=== PATIENT | male | born 1930 | race Hispanic/Latino ===

== ENCOUNTER 2017-04-28 11:41 | Inpatient (IN) | payer MEDICARE, MEDICAID ==
[2017-04-28 11:58] VITALS: BMI 29.7
--- NOTE | 2017-04-28 12:12 | ED PDOC ---
Arrival/HPI - General Chief Complaint: Anxiety Time Seen by Provider: 04/28/17 11:45 Historian: Patient, EMS - History of Present Illness Narrative History of Present Illness (Text): The patient is a 87yo male, brought to the emergency department by EMS for evaluation of anxiety. Patient reports he lives alone and was in his apartment and became anxious. He denies any chest pain or shortness of breath and states he just felt anxious. Per EMS, pt's neighbor who called the EMS saw the patient complain of chest pain at that time. Of note, patient had a history of alzheimers dementia and is a questionable historian. Time/Duration: Prior to Arrival Symptom Onset: Gradual Past Medical History - Provider Review Nursing Documentation Reviewed: Yes - Cardiac Hx Cardiac Disorders: Yes - Pulmonary Hx Respiratory Disorders: No - Neurological Hx Neurological Disorder: Yes Hx Alzheimer's Disease: Yes - HEENT Hx HEENT Disorder: No - Renal Hx Renal Disorder: No - Endocrine/Metabolic Hx Endocrine Disorders: No - Hematological/Oncological Hx Blood Disorders: No - Integumentary Hx Dermatological Disorder: No - Musculoskeletal/Rheumatological Hx Musculoskeletal Disorders: Yes Hx Falls: Yes - Gastrointestinal Hx Gastrointestinal Disorders: Yes (ACUTE CHOLECYSTITIS,GERD,SPHICTERECTOMY AND STONE EXTRACTION FOR CBD) - Genitourinary/Gynecological Hx Genitourinary Disorders: Yes Hx Reproductive Disorders: Yes (PROSTATE CA) - Psychiatric Hx Psychophysiologic Disorder: No Hx Anxiety: No Hx Emotional Abuse: No Hx Physical Abuse: No Hx Substance Use: No - Past Surgical History Past Surgical History: Non-Contributing - Anesthesia Hx Anesthesia Reactions: No Hx Malignant Hyperthermia: No - Suicidal Assessment Feels Threatened In Home Enviroment: No Family/Social History - Physician Review Nursing Documentation Reviewed: Yes Family/Social History: Unknown Family HX Smoking Status: Former Smoker Hx Alcohol Use: No Hx Substance Use: No Hx Substance Use Treatment: No Allergies/Home Meds Allergies/Adverse Reactions: Allergies Penicillins Allergy (Verified 04/28/17 17:02) ANAPHYLAXIS unknown Home Medications: Home Meds Medication Instructions Recorded Confirmed Donepezil HCl [Aricept ODT] 10 mg PO DAILY 09/20/16 04/28/17 Doxazosin [Cardura] 4 mg PO DAILY 09/20/16 04/28/17 Furosemide [Lasix] 40 mg PO DAILY 09/20/16 04/28/17 Memantine [Namenda] 28 mg PO HS 09/20/16 04/28/17 Simvastatin 10 mg PO DAILY 09/20/16 04/28/17 Physical Exam - Physical Exam Narrative Physical Exam (Text): - Review of Systems All systems reviewed and negative as marked. Constitutional: Normal. absent: Fatigue, Weight Change, Fevers Eyes: Normal ENT: Normal Respiratory: Normal absent: SOB, Cough, Sputum Cardiovascular: Normal absent: Chest pain, Palpitations, Syncope Gastrointestinal: Normal absent: Abdominal pain, Diarrhea, Nausea, Vomiting Genitourinary: Normal. absent: Dysuria, Frequency, Hematuria Musculoskeletal: Normal. absent: Arthralgias, Back Pain, Neck Pain Skin: Normal Neurological: Normal absent: Focal Weakness Endocrine: Normal Hemo/Lymphatic: Normal Psychiatric: Anxiety - Physical exam Patient appears age appropriate, speaking full sentences without difficulty - Systems Exam Head: Present: Atraumatic, Normocephalic Pupils: Present: PERRL Extraocular Muscles: Present: EOMI Conjunctiva: Present: Normal Mouth: Present: Moist Mucous Membranes Neck: Present: Normal Range of Motion. No: MIDLINE TENDERNESS, Paraspinal Tenderness Respiratory/Chest: Present: Clear to Auscultation, Good Air Exchange. No: Respiratory Distress, Accessory Muscle Use, Tachypnic Cardiovascular: Present: Irregularly irregular No: Murmurs Abdomen: Present: Normal Bowel Sounds, No: Tenderness, Peritoneal Signs, Rebound, Guarding, Distention Back: Present: Normal Inspection. No: Midline Tenderness, Paraspinal Tenderness Upper Extremity: Present: Normal Inspection. No: Cyanosis, Edema Lower Extremity: Present: Normal Inspection. No: Edema Neurological: Present: GCS=15, Speech Normal, cranial nerves II through XII fully intact with no cerebellar abnormality, neuro-sensory fully intact. No focal neurological deficits. Skin: Present: Warm, Dry, Normal Color. No: Rashes Lymphatic: Present: OX3, NI, NC Psychiatric: Present: Alert, not anxious 04/28/17 14:14 Vital Signs Temp Pulse Resp BP Pulse Ox 04/28/17 15:24 59 L 16 130/88 97 04/28/17 13:55 55 L 16 139/84 99 04/28/17 11:42 97.8 F 77 18 145/72 97 Medical Decision Making ED Course and Treatment: Impression: Anxiety Differential Diagnosis included but are not limited to: Anxiety vs. ACS Plan: -- Called pt's daughter Cari who confirms the pt's history of dementia and states pt has history of heart disease. She is aware of plan to observe pt overnight for chest pain. -- EKG -- Reassess and disposition Prior Visits: had a stress test performed by Dr. Dick Progress Notes: 04/28/17 13:26 pt resting comfortably in bed, denies complaints. states he has no cp/sob at this time. does not appear anxious 04/28/17 13:[address] Lopez, asked to admit to tele and order q8 card iso pt aware of and agrees with plan - Lab Interpretations Lab Results: 04/28/17 12:15 04/28/17 12:15 Lab Results 04/28/17 12:15: Sodium 142, Potassium 3.7, Chloride 104, Carbon Dioxide 26, Anion Gap 16, BUN 33 H, Creatinine 1.2, Est GFR ( Amer) > 60, Est GFR ( Non-Af Amer) 58, Random Glucose 102, Calcium 9.9, Total Bilirubin 1.3, AST 32, ALT 22, Alkaline Phosphatase 93, Lactate Dehydrogenase 545, Total Creatine Kinase 72, Troponin I < 0.01, Total Protein 8.1, Albumin 4.3, Globulin 3.9, Albumin/Globulin Ratio 1.1 04/28/17 12:15: PT 12.8 H, INR 1.19 H, APTT 28.5 04/28/17 12:15: WBC 4.2 L D, RBC 4.63, Hgb 13.9 L, Hct 40.6 L, MCV 87.7, MCH 30.0, MCHC 34.2, RDW 14.1, Plt Count 180, MPV 9.5, Gran % 68.8 H, Lymph % (Auto ) 19.8 L, [place] % (Auto) 5.8, Eos % (Auto) 4.6, Baso % (Auto) 1.0, Gran # 2.86, Lymph # 0.8 L, [place] # 0.2, Eos # 0.2, Baso # 0.04 - RAD Interpretation Radiology Orders: 04/28/17 12:03 CHEST PORTABLE [RAD] Stat - EKG Interpretation EKG Interpretation (Text): 52 beats per minute. Irregularly irregular. No ST elevation. Atrial fibrillation. Interpreted by ED Physician: Yes - Medication Orders Current Medication Orders: Acetaminophen (Tylenol 325mg Tab) 650 mg PO Q6H PRN PRN Reason: Fever >100.4 F Last Admin: 04/28/17 21:34 Dose: 650 mg Re-Assess: MAR Pain/Vitals Document 04/28/17 22:34 SWE (Rec: 04/29/17 01:44 SWE [id number]) Pain Reassessment Is This A Pain ReAssessment? No Sleep Is patient sleeping during reassessment? Yes Alprazolam (Xanax) 0.25 mg PO Q8H PRN PRN Reason: Anxiety Stop: 05/05/17 13:57 Last Admin: 04/30/17 20:39 Dose: 0.25 mg Amlodipine Besylate (Norvasc) 5 mg PO DAILY [facility]IO Last Admin: 04/30/17 09:25 Dose: 5 mg Atorvastatin Calcium (Lipitor) 10 mg PO DIN [facility] Last Admin: 04/30/17 17:12 Dose: 10 mg Donepezil HCl (Aricept) 10 mg PO HS [facility] Last Admin: 04/30/17 21:13 Dose: 10 mg Doxazosin Mesylate (Cardura) 4 mg PO HS [facility] Last Admin: 04/30/17 21:13 Dose: 4 mg Furosemide (Lasix) 40 mg PO DAILY [facility] Last Admin: 04/30/17 09:42 Dose: 40 mg Memantine (Namenda) 10 mg PO DAILY [facility] Last Admin: 04/30/17 09:42 Dose: 10 mg Nitroglycerin (Nitro-Bid 2% Oint) 1 ea TOP Q4H PRN PRN Reason: accelerated hypertension Ondansetron HCl (Zofran Inj) 4 mg IVP Q6H PRN PRN Reason: Nausea/Vomiting Paroxetine HCl (Paxil) 10 mg PO DAILY [facility] Last Admin: 04/30/17 09:25 Dose: 10 mg Potassium Chloride (Klor-Con 10) 20 meq PO BRK [facility] Last Admin: 04/30/17 08:32 Dose: 20 meq Risperidone (Risperdal Tab) 0.25 mg PO BID PRN; Protocol PRN Reason: Agitation Last Admin: 04/30/17 14:58 Dose: 0.25 mg Re-Assess: Reassess Psych Meds Document 04/30/17 15:58 RS (Rec: 04/30/17 18:49 [id number]) Reassess Psych Med Effective Warfarin Sodium (Coumadin) 6 mg PO 1800 VALERIO PRN Reason: Protocol Last Admin: 04/30/17 17:11 Dose: 6 mg Discontinued Medications Aspirin (Aspirin Chewable) 324 mg PO STAT STA Stop: 04/28/17 12:03 Last Admin: 04/28/17 12:12 Dose: 324 mg Metoprolol Tartrate (Lopressor) 25 mg PO BRKDIN [facility] Last Admin: 04/28/17 18:17 Dose: 25 mg Pneumococcal Polyvalent Vaccine (Pneumovax 23 Vaccine) 0.5 ml IM .ONCE ONE Stop: 04/28/17 17:19 Potassium Chloride (K-Dur 20 Meq Er Tab) 20 meq PO ONCE ONE Stop: 04/29/17 09:14 Last Admin: 04/29/17 09:25 Dose: 20 meq Warfarin Sodium (Coumadin) 5 mg PO 1800 VALERIO PRN Reason: Protocol Last Admin: 04/28/17 18:14 Dose: 5 mg - Scribe Statement The provider has reviewed the documentation as recorded by the Georges Betancourt Provider Scribe Attestation: All medical record entries made by the Georges were at my direction and personally dictated by me. I have reviewed the chart and agree that the record accurately reflects my personal performance of the history, physical exam, medical decision making, and the department course for this patient. I have also personally directed, reviewed, and agree with the discharge instructions and disposition. Disposition/Present on Arrival - Present on Arrival Any Indicators Present on Arrival: No History of DVT/PE: No History of Uncontrolled Diabetes: No Urinary Catheter: No History of Decub. Ulcer: No History Surgical Site Infection Following: None - Disposition Have Diagnosis and Disposition been Completed?: Yes Diagnosis: Chest pain Disposition: HOSPITALIZED Disposition Time: 13:34 Patient Plan: Admission Patient Problems: Current Active Problems Problem Status Onset Chest pain Acute Condition: STABLE
[2017-04-28 12:37] LABS: BASO # 0.04 K/mm3 (0.0-2.0); EOS # 0.2 (0.0-0.7); EOS % 4.6 % (1.5-5.0); GRAN # 2.86 (1.4-6.5); GRAN % 68.8 % (50.0-68.0); HEMOGLOBIN 13.9 gm/dL (14.0-18.0); LYMPH # 0.8 (1.2-3.4); LYMPH % 19.8 % (22.0-35.0); MEAN CELL VOLUME 87.7 fL (80.0-105.0); MEAN CORPUSCULAR HGB CONC 34.2 g/dl (31.0-37.0); MEAN PLATELET VOLUME 9.5 fl (7.0-11.0); MONO # 0.2 (0.1-0.6); MONO % 5.8 % (1.0-6.0); PLATELET COUNT 180 10^3/uL (120.0-450.0); RBC 4.63 10^6/uL (3.5-6.1); RED CELL DISTRIBUTION WIDTH 14.1 % (11.5-14.5)
[2017-04-28 12:39] LABS: WHITE BLOOD COUNT 4.2 10^3/ul (4.5-11.0)
[2017-04-28 12:46] LABS: ALB/GLOB RATIO 1.1 (1.1-1.8); ALBUMIN 4.3 g/dL (3.0-4.8); ALT/SGPT 22 U/L (7-56); AST/SGOT 32 U/L (15-59); BLOOD UREA NITROGEN 33 mg/dL (7-21); CALCIUM 9.9 mg/dL (8.4-10.5); GFR AFRICAN-AMERICAN > 60; GFR NON-AFRICAN AMERICAN 58
[2017-04-28 12:50] LABS: INR 1.19 (0.93-1.08); PARTIAL THROMBOPLASTIN TIME 28.5 Seconds (23.7-30.8); PROTHROMBIN TIME 12.8 Seconds (9.9-11.8)
[2017-04-28 13:10] LABS: TROPONIN I < 0.01 ng/mL
--- NOTE | 2017-04-28 13:17 | RAD ---
HISTORY: cough COMPARISON: 05/26/2016 FINDINGS: LUNGS: No active pulmonary disease. PLEURA: No significant pleural effusion identified, no pneumothorax apparent. CARDIOVASCULAR: Mild aortic tortuosity. The heart is normal in size OSSEOUS STRUCTURES: No significant abnormalities. VISUALIZED UPPER ABDOMEN: Normal. OTHER FINDINGS: None. IMPRESSION: No active disease.
[2017-04-28] MEDS ORDERED: Nitroglycerin 2% Ointment Foilpak UD TOP PRN (14:41)
[2017-04-28] MEDS ORDERED: Pneumococcal 23-Valent Vaccine IM ONE (17:18)
[2017-04-28 19:11] LABS: TROPONIN I < 0.01 ng/mL
--- NOTE | 2017-04-28 20:35 | CARD ---
APPROVED REPORT EKG Measurement Heart [id number] <Conclusion> Atrial fibrillation with slow ventricular response with a competing junctional pacemaker with premature ventricular or aberra Left axis deviation Moderate voltage criteria for LVH, may be normal variant ST & T wave abnormality, consider lateral ischemia or digitalis effect Abnormal ECG
--- NOTE | 2017-04-29 00:01 | HP ---
HISTORY OF PRESENT ILLNESS: This 87-year-old male is admitted to the [facility] for acute coronary syndrome, rule out myocardial infarction and his case was reviewed in detail in the emergency room with physician, Dr. Grady Melendez. The patient presented via ambulance when a neighbor found him in his apartment highly agitated and anxious, and although, the patient denied any chest pain, the neighbor stated that when he found the patient in his apartment prior to calling the ambulance, he seemed unsteady and seemed to be complaining of chest discomfort. At present, the patient is alert, denying any chest pain, shortness of breath, nausea, vomiting, diaphoresis, arm pain, jaw pain or substernal tightness. PAST MEDICAL HISTORY: Extensive and includes, severe pulmonary hypertension, which renders him an extremely high risk candidate for any interventional surgery or anesthesia. Also with history of advanced Alzheimer's dementia, chronic hypertension, chronic atrial fibrillation, history of hyperlipidemia, anxiety neurosis, depression, degenerative arthritis. The patient was last hospitalized in 06/2016 for acute cholecystitis that required the patient to be transferred to the [facility] for sphincterotomy and extraction of a gallstone from his common bile duct. Postprocedure, the patient was in a transitional care rehab where his Coumadin was resumed and the patient was discharged to his primary care physician, Dr. Santiago for his followup care. REVIEW OF SYSTEMS: On head review, no headache or seizure. On eye review, no change in visual acuity. On ear review, no hearing loss. On throat review, no swallowing difficulty. On neck review, no stiffness. On cardiac review; he has a history of chronic hypertension, stable atherosclerotic heart disease, chronic atrial fibrillation and now with a subtherapeutic PT/INR. Pulmonary: Has a history of severe pulmonary hypertension. GI: Status post cholecystitis, sphincterotomy and common bile duct stone extraction at [facility]. : No dysuria. Skin without rash. Neurological: Deconditioning. Vascular: No claudication. Psychological: Chronic anxiety, chronic Alzheimer's dementia. He is a current nondrinker, nonsmoker. He is retired. ALLERGIES: HE IS ALLERGIC TO PENICILLIN. OUTPATIENT MEDICATIONS: Included: 1. Coumadin. 2. Zocor. 3. Paxil. 4. Metoprolol. 5. Namenda. 6. Lasix. 7. Pepcid. 8. Cardura. 9. Aricept. 10. Tylenol p.r.n. FAMILY HISTORY: Noncontributory. SOCIAL HISTORY: He is currently a nonactive smoker, drinker or IV drug misuser. PHYSICAL EXAMINATION GENERAL: At present, he is in atrial fibrillation on a electronic commerce specialist in the emergency room. Denying any chest pain, shortness of breath. VITAL SIGNS: Temperature 97.8, respirations 18, pulse 77 and blood pressure 145/72 with a pulse ox of 99% on room air. HEENT: Head is normocephalic and atraumatic. Eyes, no icterus. Ears, clear. Throat, noninjected. NECK: Supple. HEART: Irregular, S1, S2. No pathological rubs, murmurs, or gallops. LUNGS: Clear to auscultation. ABDOMEN: Soft and nontender, no palpable organomegaly. No rebound. No guarding. No tenderness. EXTREMITIES: No clubbing, no cyanosis, no edema. SKIN: Without rash. No ulcerations. VASCULAR: Legs are warm to touch. PSYCHOLOGICAL: Alert, confused, does not know the name of his home medication. NEURO: Moves all 4 extremities and sensory exam intact. LABORATORY DATA: His white count 4200, hemoglobin 13.9, hematocrit 40.6, and platelets 180,000. PT/INR 1.19. PTT 28.5. Sodium 142, K 3.7, chloride 104, bicarb 26, BUN 33 and creatinine 1.2. Random blood sugar was 102. Bilirubin normal at 1.3, AST 32, ALT 22 and alkaline phosphatase 93. CPK normal at 72, troponin less than 0.01. EKG showed atrial fibrillation with nonspecific ST-T wave changes. Chest x-ray was reviewed by Dr. Segundo, which showed no evidence of pulmonary disease and no active pulmonary disease. IMPRESSION: This is an 87-year-old male with multiple medical problems, now with possible acute coronary syndrome, rule out unstable angina, history of arteriosclerotic heart disease, chronic atrial fibrillation, chronic hypertension, subtherapeutic PT/INR on outpatient Coumadin, also with history of hyperlipidemia, dementia, anxiety, depression, pulmonary hypertension, degenerative arthritis, status post cholecystitis and sphincterotomy and gallstone extraction via the common bile duct. PLAN: At present is to admit this patient to the cardiac unit. He will receive nasal O2 p.r.n. I have outlined a heart healthy soft bland diet and has outlined high risk fall protocol to be maintained for this patient. He is ordered to receive physical therapy for ambulation safety. He has an order for 2 liters nasal O2 p.r.n. He will be receiving Xanax 0.25 mg p.o. q.8 hours p.r.n. anxiety, Risperdal 0.25 mg p.o. b.i.d. p.r.n. agitation, Paxil 10 mg p.o. daily, Namenda 10 mg p.o. daily, metoprolol tartarate 25 mg p.o. b.i.d. to be held if his systolic blood pressure is less than 100 or his pulse is less than 50, Lipitor 10 mg p.o. at dinner time, Lasix 40 mg p.o. daily, Coumadin will be resumed at 5 mg p.o. daily while monitoring PT/INR daily and holding his Coumadin for any INR greater than 3, Cardura 4 mg p.o. at bedtime and Aricept 10 mg p.o. at bedtime. I have ordered cardiac isoenzymes q.8 x2. He will have daily PT/INR, I will place an order for transitional care rehab for reconditioning and gait training. The patient's overall prognosis remains poor, but stable at present. Approximately fifty minutes was spent in the care, coordination of care, review of care, and discussion of care and ordering of care for this patient today. Afshan Lopez MD MTDD
--- NOTE | 2017-04-29 05:27 | CP.PCM.PN ---
Subjective - Date & Time of Evaluation Date of Evaluation: 04/29/17 Time of Evaluation: 05:25 - Subjective Subjective: Patient was seen at bedside because he had multiple pauses on monitor 2.62. 2.85, 3.03 seconds. He has no complaints. Denies chest pain, nausea , sob, sweating. This 87 year old white male was admitted for agitation, anxiety, chest discomfort, acute coronary syndrome, rule out MA. Has PMD of dmentia, pulmonary HTN, atrial fibrillation, HLD, anxiety neurosis, degenerative arthritis. Objective - Vital Signs/Intake and Output Vital Signs (last 24 hours): Temp Pulse Resp BP Pulse Ox 98.1 F 61 18 145/91 H 95 04/29/17 00:01 04/29/17 00:01 04/29/17 00:01 04/29/17 00:01 04/29/17 00:01 Intake and Output: 04/28/17 04/29/17 18:59 06:59 Intake Total 0 Output Total 400 Balance -400 - Medications Medications: Current Medications Acetaminophen (Tylenol 325mg Tab) 650 mg PO Q6H PRN PRN Reason: Fever >100.4 F Last Admin: 04/28/17 21:34 Dose: 650 mg Alprazolam (Xanax) 0.25 mg PO Q8H PRN PRN Reason: Anxiety Stop: 05/05/17 13:57 Atorvastatin Calcium (Lipitor) 10 mg PO DIN [facility] Last Admin: 04/28/17 18:14 Dose: 10 mg Donepezil HCl (Aricept) 10 mg PO HS [facility] Last Admin: 04/28/17 21:36 Dose: 10 mg Doxazosin Mesylate (Cardura) 4 mg PO HS [facility] Last Admin: 04/28/17 21:35 Dose: 4 mg Furosemide (Lasix) 40 mg PO DAILY [facility] Memantine (Namenda) 10 mg PO DAILY [facility] Metoprolol Tartrate (Lopressor) 25 mg PO BRKDIN [facility] Last Admin: 04/28/17 18:17 Dose: 25 mg Nitroglycerin (Nitro-Bid 2% Oint) 1 ea TOP Q4H PRN PRN Reason: accelerated hypertension Ondansetron HCl (Zofran Inj) 4 mg IVP Q6H PRN PRN Reason: Nausea/Vomiting Paroxetine HCl (Paxil) 10 mg PO DAILY [facility] Risperidone (Risperdal Tab) 0.25 mg PO BID PRN; Protocol PRN Reason: Agitation Warfarin Sodium (Coumadin) 5 mg PO 1800 VALERIO PRN Reason: Protocol Last Admin: 04/28/17 18:14 Dose: 5 mg - Labs Labs: PT 12.8 Seconds (9.9-11.8) H 04/28/17 12:15 INR 1.19 (0.93-1.08) H 04/28/17 12:15 APTT 28.5 Seconds (23.7-30.8) 04/28/17 12:15 Laboratory Last Values WBC 4.2 10^3/ul (4.5-11.0) L D 04/28/17 12:15 RBC 4.63 10^6/uL (3.5-6.1) 04/28/17 12:15 Hgb 13.9 gm/dL (14.0-18.0) L 04/28/17 12:15 Hct 40.6 % (42.0-52.0) L 04/28/17 12:15 MCV 87.7 fL (80.0-105.0) 04/28/17 12:15 MCH 30.0 pg (25.0-35.0) 04/28/17 12:15 MCHC 34.2 g/dl (31.0-37.0) 04/28/17 12:15 RDW 14.1 % (11.5-14.5) 04/28/17 12:15 Plt Count 180 10^3/uL (120.0-450.0) 04/28/17 12:15 MPV 9.5 fl (7.0-11.0) 04/28/17 12:15 Gran % 68.8 % (50.0-68.0) H 04/28/17 12:15 Lymph % (Auto) 19.8 % (22.0-35.0) L 04/28/17 12:15 [place] % (Auto) 5.8 % (1.0-6.0) 04/28/17 12:15 Eos % (Auto) 4.6 % (1.5-5.0) 04/28/17 12:15 Baso % (Auto) 1.0 % (0.0-3.0) 04/28/17 12:15 Gran # 2.86 (1.4-6.5) 04/28/17 12:15 Lymph # 0.8 (1.2-3.4) L 04/28/17 12:15 [place] # 0.2 (0.1-0.6) 04/28/17 12:15 Eos # 0.2 (0.0-0.7) 04/28/17 12:15 Baso # 0.04 K/mm3 (0.0-2.0) 04/28/17 12:15 PT 12.8 Seconds (9.9-11.8) H 04/28/17 12:15 INR 1.19 (0.93-1.08) H 04/28/17 12:15 APTT 28.5 Seconds (23.7-30.8) 04/28/17 12:15 Sodium 142 mmol/L (132-148) 04/28/17 12:15 Potassium 3.7 mmol/L (3.6-5.0) 04/28/17 12:15 Chloride 104 mmol/L (98-107) 04/28/17 12:15 Carbon Dioxide 26 mmol/L (21-33) 04/28/17 12:15 Anion Gap 16 (10-20) 04/28/17 12:15 BUN 33 mg/dL (7-21) H 04/28/17 12:15 Creatinine 1.2 mg/dL (0.5-1.4) 04/28/17 12:15 Est GFR ( Amer) > 60 04/28/17 12:15 Est GFR (Non-Af Amer) 58 04/28/17 12:15 Random Glucose 102 mg/dL (70-110) 04/28/17 12:15 Calcium 9.9 mg/dL (8.4-10.5) 04/28/17 12:15 Total Bilirubin 1.3 mg/dL (0.2-1.3) 04/28/17 12:15 AST 32 U/L (15-59) 04/28/17 12:15 ALT 22 U/L (7-56) 04/28/17 12:15 Alkaline Phosphatase 93 U/L (38-133) 04/28/17 12:15 Lactate Dehydrogenase 513 U/L (333-699) 04/28/17 18:28 Total Creatine Kinase 81 U/L (35-230) 04/28/17 18:28 Troponin I < 0.01 ng/mL 04/28/17 18:28 Total Protein 8.1 g/dL (5.8-8.3) 04/28/17 12:15 Albumin 4.3 g/dL (3.0-4.8) 04/28/17 12:15 Globulin 3.9 gm/dL 04/28/17 12:15 Albumin/Globulin Ratio 1.1 (1.1-1.8) 04/28/17 12:15 - Constitutional Appears: Well, No Acute Distress - Head Exam Head Exam: ATRAUMATIC, NORMAL INSPECTION, NORMOCEPHALIC - Eye Exam Eye Exam: Normal appearance - ENT Exam ENT Exam: Normal External Ear Exam - Neck Exam Neck Exam: Normal Inspection - Respiratory Exam Respiratory Exam: NORMAL BREATHING PATTERN - Cardiovascular Exam Cardiovascular Exam: absent: JVD - GI/Abdominal Exam GI & Abdominal Exam: absent: Distended - Rectal Exam Rectal Exam: Deferred - Exam Additional comments: Deferred. - Extremities Exam Extremities Exam: Normal Inspection - Back Exam Back Exam: NORMAL INSPECTION - Neurological Exam Neurological Exam: Alert - Psychiatric Exam Psychiatric exam: Normal Affect, Normal Mood - Skin Skin Exam: Normal Color Assessment and Plan - Assessment and Plan (Free Text) Assessment: Multiple pauses. Atrial fibrillation. HTN. Dementia. Degenerative arthritis. R/O MA. Plan: EKG stat. Troponin stat. BMP,Magnesium, Phos. stat. Will discuss with PMD. Continue present management as per PMD. 05:45.Discussed with PMD.Will observe.
[2017-04-29 07:27] LABS: INR 1.19 (0.93-1.08); PROTHROMBIN TIME 12.8 Seconds (9.9-11.8)
[2017-04-29 07:36] LABS: BLOOD UREA NITROGEN 28 mg/dL (7-21); CALCIUM 9.5 mg/dL (8.4-10.5); GFR AFRICAN-AMERICAN > 60; GFR NON-AFRICAN AMERICAN > 60; MAGNESIUM 2.2 mg/dL (1.7-2.2)
[2017-04-29 07:51] LABS: TROPONIN I < 0.01 ng/mL
[2017-04-29] MEDS ORDERED: Potassium Chloride 20 mEq ER Tab PO ONE (09:13)
--- NOTE | 2017-04-29 17:03 | PN ---
DATE: 04/29/2017 SUBJECTIVE: This is an 87-year-old male was examined at his bedside. His case was reviewed in detail with himself, his daughter, and his nurse, Yusra Dugan. I have received phone call earlier this morning from Dr. 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 He denies any active chest pain or shortness of breath. He remains easily agitated and suffers from chronic advanced Alzheimer's disease. OBJECTIVE: VITAL SIGNS: Temperature 97.8, respirations 19, pulse 69 and blood pressure 133/84 with a pulse ox of 95% on room air. The monitor shows chronic atrial fibrillation. PHYSICAL EXAMINATION: HEENT: Head is normocephalic and atraumatic. Eyes no icterus. Ears are clear. Throat is noninjected. NECK: Supple. HEART: Irregular, S1, S2. No pathological rubs, murmurs, or gallops. LUNGS: Clear to auscultation. ABDOMEN: Soft and nontender, no palpable organomegaly. No rebound. No guarding. No tenderness. EXTREMITIES: No clubbing, no cyanosis, no edema. SKIN: Without rash. NEUROLOGICAL: Unchanged. PSYCHOLOGICAL: Alert, positive Alzheimer's dementia. VASCULAR: Legs are warm to touch. LABORATORY DATA: Sodium 142, potassium 3.5, chloride 106, bicarb 25, BUN 28, creatinine 1.0. Random blood sugar 82, phosphorus normal 3.1, magnesium normal 2.2. All liver function testing was normal, including bilirubin 1.3, AST 32, ALT 22, and alk phos 93. CPK #1, 172; CPK #2, 81; normal. Troponin #1, less than 0.01; Troponin# 2, less than 0.01; Troponin# 3, less than 0.01. PT/INR 1.19. White count 4200, hemoglobin 13.9, hematocrit 40.6, platelets 180,000. IMPRESSION: An 87-year-old male with chronic atrial fibrillation, stable atherosclerotic heart disease, advanced Alzheimer's dementia, subtherapeutic PT/INR, in patient with probable noncompliance with outpatient Coumadin therapy, now with mild hypokalemia in the setting of diuretic therapy, chronic hyperlipidemia, hypertension, history of anxiety, history of agitation, history of cholecystitis, pulmonary hypertension, status post common bile duct sphincterotomy and extraction of common bile duct gallbladder stone. PLAN: At present is to maintain the patient on the cardiac unit. He is order to have an evaluation for transitional care rehab for reconditioning and gait training, while attempting to reintroduce Coumadin for his chronic atrial fibrillation, while monitoring him for therapeutic dosing. The patient also received Xanax earlier today according to nursing staff because of anxiety neurosis and we will have his metoprolol held given his recent cardiac pausing. Medications now will include Xanax 0.25 mg p.o. q. 8 hours p.r.n. agitation and anxiety, Risperdal 0.25 mg p.o. b.i.d. p.r.n. psychosis, Paxil 10 mg p.o. daily, Norvasc 5 mg p.o. daily, Nitroglycerin 1 inch to chest wall q. 4 hours p.r.n. systolic blood pressure greater than 160 or diastolic blood pressure greater than 100, Namenda 10 mg p.o. daily, Lipitor 10 mg p.o. at dinner time, Lasix 40 mg p.o. daily, potassium 20 mEq p.o. daily, Coumadin 6 mg p.o. daily monitoring PT/INR daily and holding Coumadin for any INR greater than 3.0, Cardura 4 mg p.o. at bedtime, Aricept 10 mg p.o. at bedtime. The patient will have a repeat potassium level in the a.m. Repeat PT/INR in a.m. He remains on elopement precautions, fall precautions and he is order to have physical therapy for ambulation safety. As discussed with his daughter and nursing staff and himself ultimate plan will be for transitional care rehab was accepted or home for family to provide 24 hours supervision upon discharge. Greater than fifty minutes were spent in the care, coordination of care and review of care and adjustment of orders for this patient today and all of the above was discussed in detail with his daughter and his nurse at the bedside. Afshan Lopez MD MTDD
--- NOTE | 2017-04-29 20:43 | CARD ---
APPROVED REPORT EKG Measurement Heart [id number] <Conclusion> Atrial fibrillation with slow ventricular response Left anterior fascicular block Nonspecific ST abnormality, probably digitalis effect Abnormal ECG
[2017-04-30 07:13] LABS: INR 1.18 (0.93-1.08); PROTHROMBIN TIME 12.7 Seconds (9.9-11.8)
[2017-04-30] MEDS: Potassium Chloride 10 mEq ER Tab PO SCH (08:32)
--- NOTE | 2017-04-30 16:43 | PN ---
DATE: 04/30/2017 SUBJECTIVE: This 87-year-old male was examined at his bedside. His case was reviewed with his nurse Ling Dugan. The patient remains in an atrial fibrillation and remains easily agitated and confused in the setting of chronic Alzheimer's dementia. He denies any chest pain. There have been no reports of shortness of breath, fever or chills, and all troponins have been negative thus far. PHYSICAL EXAMINATION: VITAL SIGNS: Temperature 97.8, respirations 19, pulse 65, and blood pressure 125/71 with a pulse oximetry of 95% on room air. odd shoe examiner shows atrial fibrillation. HEENT: Head is normocephalic, atraumatic. Eyes, no icterus. Ears clear. Throat is noninjected. NECK: Supple. HEART: Irregular S1 and S2. No pathological rubs, murmurs, or gallops. LUNGS: Clear. ABDOMEN: Soft. EXTREMITIES: No clubbing, no cyanosis, no edema. SKIN: Without rash. NEUROLOGIC: Grossly intact. PSYCHOLOGICAL: Alert, but confused. VASCULAR: Legs warm to touch. LABORATORY DATA: White count 4200, hemoglobin 13.9, hematocrit 40.6, and platelets 180,000. PT/INR is subtherapeutic at 1.18. Sodium 142, today's potassium is 3.7, chloride 106, bicarbonate 25, BUN 28, creatinine 1.0, random blood sugar 82. Troponin less than 0.01 x3. IMPRESSION: An 87-year-old male with Alzheimer's dementia, chronic atrial fibrillation admitted with a subtherapeutic PT/INR secondary to noncompliance with outpatient medication with comorbidities of chronic hypertension, chronic atrial fibrillation, hyperlipidemia, agitation syndrome, confusion syndrome, and anxiety neurosis. PLAN: At present is to continue heart healthy diet. He remains on elopement precautions, fall precautions. He is receiving physical therapy for ambulation safety. He is outlined to receive Xanax 0.25 mg p.o. q. 8 hours p.r.n. anxiety, Risperdal 0.25 mg p.o. b.i.d. p.r.n. psychosis, Paxil 10 mg p.o. daily, Norvasc 5 mg p.o. daily, Namenda 10 mg p.o. daily, Lipitor 10 mg p.o. daily, Lasix 40 mg p.o. daily, potassium chloride 20 mEq p.o. daily, Coumadin 6 mg p.o. daily, Cardura 4 mg p.o. at bedtime, and Aricept 10 mg p.o. at bedtime. He has been stable on cardiovascular monitoring. He is being evaluated for transitional care rehab for reconditioning and monitoring of INR on coumadin dosing. Social service will need to evaluate this patient for discharge safety since he lives alone at home and all of this was discussed in detail with the patient and his nurse at the bedside. Overall prognosis remains poor, but stable at present. DNR status could not be obtained because daughter is not able give consent and is out of the country in [place] at the present time. Afshan Lopez MD MTDTommie
[2017-05-01 06:51] LABS: INR 1.3 (0.93-1.08)
[2017-05-01 07:56] VITALS: BP 110/77; PULSE 83; RESP 18; TEMP 97.5; O2SAT 94
[2017-05-01] MEDS: Potassium Chloride 10 mEq ER Tab PO SCH (09:26)
--- NOTE | 2017-05-02 10:29 | DS ---
FINAL DIAGNOSES: Atypical chest pain, anxiety neurosis, chronic hypertension, hypokalemia improved, Alzheimer's dementia, peptic ulcer disease with gastroesophageal reflux disease, hyperlipidemia, and pulmonary hypertension. DISPOSITION: Home with 24-hour supervision by family. Followup with PMD in 48 hours for PT/INR level. His name is Tru Santiago MD. DISCHARGE MEDS: Coumadin 3 mg p.o. daily, Zocor 10 mg p.o. daily, Paxil 10 mg p.o. daily, Namenda 28 mg p.o. at bedtime, Lasix 40 mg p.o. daily, K-dur 20 mEq p.o. daily, Pepcid 20 mg p.o. b.i.d., Cardura 4 mg p.o. daily, Aricept 10 mg p.o. daily, Colace 100 mg p.o. b.i.d., and Norvasc 5 mg p.o. daily. The patient was given instruction to stop Toprol, start Norvasc, and add K-dur 20 mEq p.o. daily to regime and to have a blood test for potassium, PT/INR with Dr. Tru Santiago in 48 hours. SUMMARY: This 87-year-old male who was admitted to the [facility] after presenting to the emergency room in a confused anxious state with questionable chest pain, was worked up with serial CPK, isoenzymes negative x3 and EKG that showed no acute changes. The patient was noted to have hypokalemia that was supplemented with potassium and also had an episode of bradycardia and pauses, which caused the discontinuation of his beta kiki. He also was admitted with a subtherapeutic PT/INR, probably secondary to noncompliance with medication and all of this was reviewed with his daughter in detail. I have had a lengthy discussion with his case management assistant, Kimberli New. he will be reaching out to the daughter regarding the need for 24-hour supervision of this patient upon discharge. The nurse, Priti Hodgson is reviewing his adjusted medication and need for follow up with Dr. Santiago, with both the patient and his daughter, in 48 hours regarding additional blood work on Coumadin and potassium, and hopefully the patient will be compliant with all of the above. At the time of discharge, vital signs were temperature 97.5, respirations 18, pulse 83, and blood pressure 110/77 with a pulse ox of 94% on room air. His labs showed sodium 142, K 3.7, chloride 106, bicarb 25, BUN 28, creatinine 1.0, random blood sugar 82, bilirubin 1.3, AST 32, ALT 22, and alk phos 93. White count 4,200, hemoglobin 13.9, hematocrit 40.6, platelets 180,000. PT/INR 1.30 and rising. The patient will follow up with his provider scribe, Dr. Dick, and all of the above have been discussed in detail with the patient, his daughter, social service, and nursing. Hopefully, the patient will be compliant with the above recommendations. Afshan Lopez MD MTDTommie
== END 2017-05-01 17:48 | disposition home or self-care (01) | DRG 313 ==
LOC: ED 11:41 → ERH 13:36 → 3RNO 17:10
PROVIDERS: ADMIT Internal Medicine; ATTEND Internal Medicine
DX: R07.89 Other chest pain (principal); I24.9 Acute ischemic heart disease, unspecified; I27.2 Other secondary pulmonary hypertension; G30.9 Alzheimer's disease, unspecified; F02.80 Dementia in other diseases classified elsewhere, unspecified severity, without behavioral disturbance, psychotic disturbance, mood disturbance, and anxiety; I48.2 Chronic atrial fibrillation; I10 Essential (primary) hypertension; E78.5 Hyperlipidemia, unspecified; E87.6 Hypokalemia; F17.200 Nicotine dependence, unspecified, uncomplicated; F41.1 Generalized anxiety disorder; I25.10 Atherosclerotic heart disease of native coronary artery without angina pectoris; K21.9 Gastro-esophageal reflux disease without esophagitis; K27.9 Peptic ulcer, site unspecified, unspecified as acute or chronic, without hemorrhage or perforation; M19.90 Unspecified osteoarthritis, unspecified site; Z79.01 Long term (current) use of anticoagulants; Z79.899 Other long term (current) drug therapy; Z85.46 Personal history of malignant neoplasm of prostate; Z91.19 Patient's noncompliance with other medical treatment and regimen; Z88.0 Allergy status to penicillin

== ENCOUNTER 2017-08-14 16:03 | Inpatient (IN) | payer OTHER, MEDICAID ==
[2017-08-14 16:15] VITALS: BMI 23.3
[2017-08-14] MEDS ORDERED: Influenza Vaccine 60 mcg/0.5 mL SYR (4YR UP) IM ONE (23:45)
[2017-08-14] MEDS ORDERED: Pneumococcal 23-Valent Vaccine IM ONE (23:45)
[2017-08-15 07:06] LABS: INR 2.33 (0.93-1.08)
[2017-08-15] MEDS: Potassium Chloride 20 mEq ER Tab PO SCH (07:42)
--- NOTE | 2017-08-15 08:00 | RAD ---
HISTORY: r/o CHF COMPARISON: Portable chest 04/28/2017. TECHNIQUE: Chest PA and lateral FINDINGS: LUNGS: There is a borderline limited patchy atelectasis at the mid to inferior right lung zone with none on the left. Reticular markings are somewhat increased at the bilateral mid to inferior lung zones as well. Interval nodular densities not exclude the mid left lung zone laterally for which follow-up chest CT is recommended. PLEURA: No significant pleural effusion identified. No pneumothorax apparent. CARDIOVASCULAR: Cardiomegaly is stable. Pulmonary vascular pattern is slightly increased at the hilar regions bilaterally though this could be a function of limited penetration of this exam. Clinically correlate for potential limited CHF nevertheless. OSSEOUS STRUCTURES: No significant abnormalities. VISUALIZED UPPER ABDOMEN: Unremarkable. OTHER FINDINGS: None. IMPRESSION: Limited CHF pattern is questioned though underpenetration does accentuate the vascular anatomy throughout. Clinically correlate further. Borderline patchy infiltrate mid to inferior right lung zones. Flattened hemidiaphragms may indicate an element of COPD. Pulmonary nodule is question in the mid left lung zone laterally. Follow-up chest is advised for follow-up.
[2017-08-15] MEDS: diltiaZEM 180 mg/24 Hours CD Cap PO SCH (09:38)
[2017-08-15] MEDS: Oxycodone/Acetaminophen 5/325 mg Tab PO PRN (12:28)
--- NOTE | 2017-08-15 21:24 | PN ---
DATE OF SERVICE: 08/15/2017 SUBJECTIVE: This 87-year-old male was examined at his bedside today, 08/15/2017. He remains confused, chest pain free, and at high risk for falls. He was admitted with congestive heart failure and a repeat chest x-ray was reviewed. I ordered this x-ray last evening and it shows atelectasis at the inferior right lung base with increased CHF at the hilar region consistent with CHF. The patient denies chest pain, fever, or cough. OBJECTIVE: VITAL SIGNS: On physical exam, temperature is 98.2, respirations 20, pulse 64, blood pressure 127/74, pulse oximetry is 100% on room air. HEENT: Head, normocephalic, atraumatic. Eyes, no icterus. Ears clear. Throat, non-injected. NECK: Supple. HEART: Irregular S1 and S2. LUNGS: Decreased breath sounds at the bases. ABDOMEN: Soft. EXTREMITIES: No edema. SKIN: Without rash. NEUROLOGIC: Intact. PSYCHOLOGIC: Alert. VASCULAR: Legs warm to touch. LABORATORY DATA: PT/INR 2.33, therapeutic. IMPRESSION: An 87-year-old male with multiple medical problems, admitted status post a fall, now in need of reconditioning and gait training with comorbidities of organic brain syndrome, anxiety neurosis, agitation and depression, chronic hypertension, chronic atrial fibrillation, on Coumadin therapy, history of atherosclerotic heart disease, congestive heart failure, hyperlipidemia, peptic ulcer disease with gastroesophageal reflux disease, and degenerative arthritis. PLAN: The plan at present is to maintain the patient on physical and occupational therapy while maintaining aspiration and fall precautions daily, continuing him on a heart-healthy diet with 1000 mL p.o. fluid restriction. He continues on Pepcid 20 mg at bedtime, Paxil 10 mg p.o. daily, Namenda 10 mg p.o. at bedtime, Lipitor 10 mg p.o. at dinner time. I will increase his Lasix to 40 mg IV daily, potassium 20 mEq p.o. daily, warfarin 3 mg p.o. daily while monitoring PT/INR and holding Coumadin for any INR greater than 3. He continues on Colace 100 mg b.i.d., Cardura 4 mg p.o. at bedtime, Cardizem CD 180 mg daily, and Aricept 10 mg p.o. at bedtime. Based on the results of followup chest x-ray within the next 48 hours, additional testings and workup will be entertained. Based on his clinical progress and overall prognosis though poor, he remains stable at present. Greater than 50 minutes were spent in the care, counseling, and management of the patient today. This was reviewed with himself, Nursing, Physical Therapy, Social Service, and Speech Therapy. Afshan Lopez MD MTDD
[2017-08-16] MEDS: Potassium Chloride 20 mEq ER Tab PO SCH (07:38)
[2017-08-16 07:39] LABS: BLOOD UREA NITROGEN 28 mg/dL (7-21); CALCIUM 9.4 mg/dL (8.4-10.5); CARBON DIOXIDE 26 mmol/L (21-33); CHLORIDE 107 mmol/L (98-107); GFR AFRICAN-AMERICAN > 60; GLUCOSE,RANDOM 100 mg/dL (70-110); POTASSIUM 4.1 mmol/L (3.6-5.0); SODIUM 142 mmol/L (132-148)
[2017-08-16] MEDS: diltiaZEM 180 mg/24 Hours CD Cap PO SCH (10:31)
--- NOTE | 2017-08-16 14:25 | PN ---
CARDIOLOGY FOLLOWUP DATE OF FOLLOWUP: 08/16/2017 SUBJECTIVE: The patient is in the TCU in bed, participating with physical therapy. PHYSICAL EXAMINATION: VITAL SIGNS: Blood pressure is 123/66, heart rate is in the 50s. NECK: Negative JVD. LUNGS: Without rales. HEART: S1, S2. EXTREMITIES: Without edema. LABORATORY DATA: The hemoglobin is 12. Chemistries unremarkable. IMPRESSION: 1. Status post left lower extremity contusion. 2. Stable angina. 3. Chronic atrial fibrillation. 4. Coronary artery disease. Given these findings, the patient is doing well. He is in the TCU, undergoing physical therapy. Chacorta Dick MD
--- NOTE | 2017-08-16 14:28 | PN ---
DATE: 08/16/2017 SUBJECTIVE: This 87-year-old male was examined at his bedside in the presence of charge or head nurse, Anuradha Smith, registered nurse. This case was reviewed in detail with himself, nursing and his . The patient remains hospitalized with multiple comorbidities including recent fall, deconditioning, need for gait training in the setting of degenerative arthritis, organic brain syndrome, chronic depression, chronic anxiety, neurosis as well as agitation syndrome. The patient also has a history of congestive heart failure, chronic hypertension, atrial fibrillation on Coumadin, hyperlipidemia, peptic ulcer disease with GERD and remains at risk of aspiration and remains on fall precautions as well. The patient was seen and cleared for a soft bland regular consistency diet by speech therapy and the patient remains on p.o. fluid restriction of 1000 mL daily given his recent chest x-ray showing persistent CHF. At present, he denies chest pains, shortness of breath, fever or chills. OBJECTIVE: VITAL SIGNS: Temperature is 98.4, respirations 18, pulse 57, blood pressure 123/66 with a pulse ox of 100% on room air. HEENT: Head: Normocephalic, atraumatic. Eyes: No icterus. Ears: Clear. Throat: Noninjected. NECK: Supple. HEART: Irregular S1, S2. LUNGS: Decreased breath sounds at the bases. ABDOMEN: Soft. EXTREMITIES: No edema. SKIN: Without rash. NEUROLOGICAL: Unchanged. PSYCHOLOGICAL: Confused. VASCULAR: Legs warm to touch. LABORATORY DATA: Hemoglobin 12, hematocrit 37.0. PT/INR 2.33. Sodium 142, K 4.1, chloride 107, bicarb 26, BUN 28, creatinine 1.1, random blood sugar was 100. His repeat Chest x-ray shows persistent CHF. IMPRESSION: This is an 87-year-old male with multiple medical problems including atherosclerotic heart disease, congestive heart failure, atrial fibrillation, admitted with a supratherapeutic PT/INR on oral Coumadin for chronic atrial fibrillation status post a trip and fall as an outpatient with complaints of left leg pain with negative x-rays and CT of his left leg and hip. There is no obvious fracture with comorbidities of dementia, anxiety, agitation and comorbidities of chronic hypertension, oral Coumadin for atrial fibrillation, congestive heart failure, hyperlipidemia, peptic ulcer disease with gastroesophageal reflux disease and degenerative arthritis. PLAN: The plan as discussed with the patient, nursing, family and social service is to continue physical therapy for reconditioning and gait training. He continues on fall precautions and aspiration precautions as well as a heart healthy soft bland diet with 1000 mL p.o. fluid restriction daily. This was reviewed with the patient and his nurse at the bedside. He continues on Tylenol for mild pain, Percocet for severe pain, Pepcid 20 mg p.o. h.s., Paxil 10 mg p.o. daily, Namenda 10 mg p.o. h.s., Lipitor 10 mg p.o. at dinner time, Lasix 40 mg IV daily, potassium 20 mEq p.o. daily, warfarin 3 mg p.o. daily while monitoring INR and maintaining and holding Coumadin for any INR greater than 3. Colace 100 mg p.o. b.i.d., Cardura 4 mg p.o. h.s., Cardizem CD 180 mg p.o. daily and Aricept 10 mg p.o. h.s. The ultimate plan will be to stabilize this patient and discharge him home to the care of his family who will provide 24 hours supervision for his medical needs. His overall prognosis though poor, remains stable at present and greater than fifty minutes were spent in the care, counseling management of the patient today and adjustment of orders as outlined. I dis speak to the patient's in detail as well. All questions were answered. Afshan Lopez MD MTDD
[2017-08-17 07:33] LABS: INR 2.52 (0.93-1.08)
[2017-08-17] MEDS: Potassium Chloride 20 mEq ER Tab PO SCH (07:41)
[2017-08-17] MEDS: diltiaZEM 180 mg/24 Hours CD Cap PO SCH (10:32)
--- NOTE | 2017-08-17 11:13 | PN ---
DATE: 08/17/2017 SUBJECTIVE: The patient's leg is feeling better. OBJECTIVE: VITAL SIGNS: Blood pressure is 111/63, heart rate in the 80s. NECK: Negative JVD. LUNGS: Without rales. HEART: S1, S2. EXTREMITIES: Without edema. LABORATORY DATA: No labs were drawn today. IMPRESSION: 1. Status post contusion to the left lower extremity. 2. Stable angina. 3. Chronic atrial fibrillation. 4. Coronary artery disease. Given these findings, the patient will continue in the TCU and finish his rehabilitation to help his weakness. Chacorta Dick MD
[2017-08-17] MEDS: Oxycodone/Acetaminophen 5/325 mg Tab PO PRN (13:33)
--- NOTE | 2017-08-18 00:32 | PN ---
DATE: 08/17/2017 SUBJECTIVE: This 87-year-old male was examined at bedside. His case was reviewed in detail with himself, family and nursing. The patient has episodes of persistent agitation in the setting of organic brain syndrome, Alzheimer's dementia, chronic depression and anxiety neurosis. He needs constant reassurance and reaffirmation as to his medical issues and the problems at hand. Every day I discuss with him his entire medical diagnoses, the reason for his admission and his continued hospital stay. He has very minimal recall nettles and is easily agitated by his lack of recollection. The patient is now re-advised of his multiple medical problems including decompensated systolic congestive heart failure, chronic atrial fibrillation, recent fall with need for reconditioning and gait training as well as GERD, depression, Alzheimer's, hyperlipidemia, atrial fibrillation, hypertension and a supratherapeutic PT/INR. PHYSICAL EXAMINATION: VITAL SIGNS: At present, temperature is 98.2, respirations 16, pulse 80, blood pressure 111/63 and pulse ox of 96% on room air. HEENT: Head: Normocephalic, atraumatic. Eyes: No icterus. Ears: Clear. Throat: Noninjected. NECK: Supple. HEART: Irregular S1, S2. LUNGS: Decreased breath sounds at the bases. ABDOMEN: Soft. EXTREMITIES: No edema. SKIN: Without rash. NEUROLOGICAL: Unchanged. PSYCHOLOGICAL: Chronic confusion. VASCULAR: Legs warm to touch. LABORATORY DATA: Hemoglobin 12, hematocrit 37.0. INR is 2.52. Sodium 142, potassium 4.1, chloride 107, bicarb 26, BUN 28, creatinine 1.1, random blood sugar 100. Most recent chest x-ray shows persistent CHF. IMPRESSION: This is an 87-year-old male with decompensated systolic congestive heart failure secondary to chronic atrial fibrillation with comorbidities of organic brain syndrome, anxiety neurosis, chronic hypertension, hyperlipidemia, Alzheimer's dementia, depression, gastroesophageal reflux disease, degenerative arthritis and recent trip and fall in the setting of deconditioning. PLAN: At present, is to maintain this patient on the rehabilitation unit where he is receiving physical and occupational therapy for reconditioning and gait training. He is ordered to remain on fall precautions. His bed alarms are on at all times. He remains on aspiration precautions as well. He continues on a heart-healthy soft, bland diet. He continues on Pepcid 20 mg p.o. at bedtime, Paxil 10 mg p.o. daily, Namenda 10 mg p.o. at bedtime, Lipitor 10 mg p.o. at dinner time, Lasix 40 mg IV daily, K-Dur 20 mEq p.o. daily, Coumadin 3 mg p.o. daily, Colace 100 mg p.o. b.i.d., Cardura 4 mg at bedtime, Cardizem CD 180 mg p.o. daily, Ativan 0.5 mg p.o. q. 4 hours p.r.n. anxiety, and Aricept 10 mg p.o. at bedtime. He is ordered to have an INR level and will have a followup chest x-ray in the next few days to assess resolution of his congestive heart failure. Ultimate plan will be for discharge to home, where his family will provide 24-hour supervision upon discharge. All of this was re-discussed with the patient, his , nursing, social service and physical therapy. Greater than 50 minutes was spent in the care, management and counseling of this patient. All questions were answered. Orders were entered. Afshan Lopez MD MTDD
[2017-08-18] MEDS: Potassium Chloride 20 mEq ER Tab PO SCH (08:48)
--- NOTE | 2017-08-18 11:24 | RAD ---
HISTORY: compare to 08/14 r/o chf or pulmonary nodules COMPARISON: 08/14/2017 TECHNIQUE: Chest PA and lateral FINDINGS: LUNGS: No active pulmonary disease. PLEURA: No significant pleural effusion identified. No pneumothorax apparent. CARDIOVASCULAR: Moderate cardiomegaly and aortic tortuosity. Tortuosity of the great vessels with widening of the mediastinum OSSEOUS STRUCTURES: No significant abnormalities. VISUALIZED UPPER ABDOMEN: Normal. OTHER FINDINGS: None. IMPRESSION: No active disease.
[2017-08-18] MEDS: diltiaZEM 180 mg/24 Hours CD Cap PO SCH (11:58)
--- NOTE | 2017-08-18 18:31 | PN ---
DATE: 08/18/2017 SUBJECTIVE: This 87-year-old male was examined at his bedside. His case was reviewed in detail with himself and his nurse, Yesy Smith. I sent the patient for a repeat chest x-ray today. His last chest x-ray showed questionable congestive heart failure and Radiology was requesting a followup film because of a questionable pulmonary nodule in his mid left lung zone. It was felt that this pattern was questionable because of underpenetration of his film and I did repeat the x-rays and reviewed them with Dr. Duc Segundo from Radiology and currently his lungs show no active pulmonary disease. There is no pneumothorax. There is no significant pleural effusion. He does have chronic cardiomegaly with tortuosity of his great vessels but no active pulmonary disease. The patient remains chronically confused, easily agitated and nursing staff has him on chronic fall precautions. He denies any active chest pain or shortness of breath. PHYSICAL EXAMINATION: VITAL SIGNS: Temperature is 97.6, respirations 16, pulse 54 and blood pressure 100/61 with a pulse ox of 97% room air. HEENT: Head: Normocephalic, atraumatic. Eyes: No icterus. Ears: Clear. Throat: Noninjected. NECK: Supple. HEART: Irregular S1, S2. LUNGS: Clear. ABDOMEN: Soft. EXTREMITIES: No edema. SKIN: Without rash. NEUROLOGICAL: Intact. He has chronic confusion in the setting of Alzheimer's dementia. PSYCHOLOGICAL: Alert. VASCULAR: Legs warm to touch. IMPRESSION: An 87-year-old male with decompensated systolic congestive heart failure secondary to rapid atrial fibrillation, now improved on medication including Cardizem CD 180 mg p.o. daily, Cardura 4 mg p.o. at bedtime, Lasix 40 mg IV daily potassium 20 mEq p.o. daily, Colace 100 mg p.o. b.i.d., Coumadin 3 mg p.o. daily, Lipitor 10 mg p.o. at dinner time, Namenda 10 mg p.o. at bedtime, Aricept 10 mg p.o. at bedtime, Paxil 10 mg p.o. daily, Pepcid 20 mg p.o. at bedtime. PLAN: The plan is to continue the patient on a heart-healthy diet. He remains on aspiration and fall precautions. He is receiving physical and occupational therapy for reconditioning and gait training. Now that his chest x-ray shows resolution of CHF, I will switch his Lasix to 40 mg p.o. daily. He will have INRs monitored through his hospital course, holding any Coumadin dose for any INR greater than 3. He desires to be discharged to home to the care of his family who will provide 24-hour supervision for him upon discharge. Greater than 40 minutes was spent in the care, counseling and management of this patient today including review of x-rays, labs and discussion with charge nurses. All questions were answered. Prognosis remains poor but stable at present. Afshan Lopez MD MTDD
[2017-08-19] MEDS: Potassium Chloride 20 mEq ER Tab PO SCH (08:09)
[2017-08-19 09:17] LABS: INR 2.96 (0.93-1.08)
[2017-08-19] MEDS: diltiaZEM 180 mg/24 Hours CD Cap PO SCH (10:02)
--- NOTE | 2017-08-19 18:38 | PN ---
SUBJECTIVE: This 87-year-old male was examined at his bedside. His case was reviewed in detail with himself and his nurse, Mariela Raines, registered nurse. The patient remains weak and deconditioned. He has periods of agitation and acute on chronic confusion. He remains on neuro checks and fall precautions and is receiving adjusted doses of oral Lasix for recently decompensated systolic congestive heart failure in the setting of rapid atrial fibrillation. This has resulted in the adjustment of his cardiovascular blood pressure medications; Cardura has been discontinued and Cardizem CD has been implemented. At the present time, he denies fever or chills. He remains deconditioned and in need of assistance with activities of daily living. PHYSICAL EXAMINATION: VITAL SIGNS: Temperature is 98, respirations 20, pulse 66, and blood pressure 113/78 with a pulse ox of 95% room air. HEENT: Head; normocephalic, atraumatic. Eyes: No icterus. Ears: Clear. Throat: Noninjected. NECK: Supple. HEART: Irregular S1, S2. LUNGS: Decreased breath sounds at the bases. No wheezing, no rales. ABDOMEN: Soft. EXTREMITIES: No edema. SKIN: Without rash. NEUROLOGICAL: Chronic confusion and easily agitated. VASCULAR: Legs warm to touch. PSYCHOLOGICAL: Confused. Alert. LABORATORY DATA: Hemoglobin 12, hematocrit 37.0. PT/INR 2.96. Sodium 142, K 4.1, chloride 107, bicarb 26, BUN 28, creatinine 1.1, random blood sugar was 100. Calcium normal at 9.4. IMPRESSION: This is an 87-year-old male with decompensated acute systolic congestive heart failure, chronic atrial fibrillation, Alzheimer's dementia, depression, anxiety, agitation syndrome, chronic hypertension, hyperlipidemia, peptic ulcer disease with gastroesophageal reflux disease, degenerative arthritis. PLAN: To continue his heart-healthy diet with 1200 mL p.o. fluid restriction. He continues on Tylenol 650 mg p.o. q.6 hours p.r.n. pain or temperature greater than 101. Pepcid 20 mg p.o. at bedtime; Paxil 10 mg p.o. daily; Namenda 10 mg p.o. at bedtime; Lipitor 10 mg p.o. at dinner time; Lasix 40 mg p.o. daily; K-Dur 20 mEq p.o. daily; warfarin 2 mg p.o. daily. We are monitoring PT/INR, lab testing and holding Coumadin any day his INR level is greater than 3. He continues on Colace 100 mg p.o. b.i.d., Cardizem CD 180 mg p.o. daily, Ativan 0.5 mg p.o. q.4 hours p.r.n. anxiety and Aricept 10 mg p.o. at bedtime. He is to receive physical and occupational therapy daily. He remains on aspiration precautions, fall precautions and bed alarms at all times. Ultimate plan will be for discharge to home to the care of his family who will provide 24 hours supervision for this patient once home. All of this has been reviewed in detail with the patient, nursing, family, social service and physical therapy. Greater than fifty minutes was spent in the care, counseling, management and review of labs, x-rays and reports for this patient today. All questions were answered. Afshan Lopez MD MTDD
[2017-08-20] MEDS: Potassium Chloride 20 mEq ER Tab PO SCH (07:57)
[2017-08-20] MEDS: diltiaZEM 180 mg/24 Hours CD Cap PO SCH (09:51)
--- NOTE | 2017-08-20 23:45 | PN ---
DATE: 08/20/2017 SUBJECTIVE: This 87-year-old male was examined at his bedside and his case was reviewed in detail with his nurse, Mariela Raines, registered nurse. The patient remains confused. He is alert, able to follow commands but becomes easily agitated. He is anxious and is receiving oral Ativan for episodes of anxiety. He denies any fever or chills, and is receiving physical and occupational therapy for reconditioning and gait training. There have been no reports of chest pain or shortness of breath, and he has been switched to oral Lasix with resolution of radiographic findings of congestive heart failure on latest chest x-ray. PHYSICAL EXAMINATION: VITAL SIGNS: Temperature 98, respirations 17, pulse 62 and blood pressure 116/73 with a pulse ox of 97% room air. HEENT: Head is normocephalic, atraumatic. Eyes: No icterus. Ears: Clear. Throat: Noninjected. NECK: Supple. HEART: Irregular S1, S2. LUNGS: No wheezing, no rales. ABDOMEN: Soft. EXTREMITIES: No edema. SKIN: Without rash. NEUROLOGICAL: Intact. PSYCHOLOGICAL: Confused, but alert. VASCULAR: Legs warm to touch. SKIN: Without ulcers. LABORATORY DATA: Hemoglobin 12, hematocrit 37.0. PT/INR 2.96. Sodium 142, potassium 4.1, chloride 107, bicarb 26, BUN 28, creatinine 1.1, random blood sugar was 100. IMPRESSION: An 87-year-old male with advanced Alzheimer's dementia, depression, anxiety and agitation with chronic hypertension, chronic atrial fibrillation, on oral Coumadin, now with therapeutic level while receiving Coumadin 2 mg p.o. daily, with comorbidities of congestive heart failure resolved; hyperlipidemia, peptic ulcer disease with gastroesophageal reflux disease, degenerative arthritis. PLAN: At present is to continue physical therapy, occupational therapy and the patient remains on high-risk fall protocol with bed alarms on at all times. He remains on aspiration precautions, a heart-healthy diet with a 1200 mL p.o. fluid restriction. He is receiving Tylenol 650 mg p.o. q. 6 hours p.r.n. pain or temperature greater than 101, Pepcid 20 mg p.o. at bedtime for gastroesophageal reflux disease, Paxil 10 mg p.o. daily, Namenda 10 mg p.o. at bedtime, Lipitor 10 mg p.o. at dinner time, Lasix 40 mg p.o. daily, K-Dur 20 mEq p.o. daily, Coumadin 2 mg p.o. daily, Colace 100 mg p.o. b.i.d., Cardizem CD 180 mg p.o. daily, Ativan 0.5 mg p.o. q. 4 hours p.r.n. anxiety and Aricept 10 mg p.o. at bedtime. He will have a repeat PT/INR in the a.m. and ultimate plan will be to discharge the patient home to the care of his family who needs to provide 24 hours supervision given his multiple medical problems and Alzheimer's dementia. Greater than forty minutes was spent in the care, counseling, management, review of labs, x-rays and discussion of this patient with family and nursing. All questions were answered. Afshan Lopez MD MTDD
[2017-08-21 07:08] LABS: INR 3.24 (0.93-1.08)
[2017-08-21] MEDS: Potassium Chloride 20 mEq ER Tab PO SCH (07:59)
[2017-08-21] MEDS: diltiaZEM 180 mg/24 Hours CD Cap PO SCH (09:28)
[2017-08-21 09:37] LABS: HEMATOCRIT 41.3 % (42.0-52.0)
[2017-08-21 09:47] LABS: BLOOD UREA NITROGEN 35 mg/dL (7-21); CARBON DIOXIDE 25 mmol/L (21-33); CHLORIDE 107 mmol/L (98-107); GFR AFRICAN-AMERICAN > 60; GLUCOSE,RANDOM 94 mg/dL (70-110); SODIUM 142 mmol/L (132-148)
--- NOTE | 2017-08-21 13:31 | PN ---
DATE OF SERVICE: 08/21/2017 HISTORY OF PRESENT ILLNESS: This 87-year-old male remains hospitalized for multiple comorbidities including recent congestive heart failure in the setting of rapid atrial fibrillation that prompted the adjustment of cardiac medication and diuretics. The patient remains in need of assistance with activity of daily living, is cooperating with physical and occupational therapy, and is being readied for discharge in the next 24 hours. The patient denies fever, chills, chest pain, or shortness of breath. PHYSICAL EXAMINATION: VITAL SIGNS: Temperature is 97.9, respirations 18, pulse 67, and blood pressure 119/64 with a pulse oximetry of 96% on room air. HEENT: Head, normocephalic, atraumatic. Eyes, no icterus. Ears clear. Throat, not injected. NECK: Supple. HEART: Irregular S1, S2. LUNGS: Clear. ABDOMEN: Soft. EXTREMITIES: No edema. SKIN: Without rash. NEUROLOGIC: Intact. PSYCHOLOGIC: Alert. VASCULAR: Legs warm to touch. LABORATORY DATA: Hemoglobin 13.8, hematocrit 41.3, PT/INR 3.24, sodium 142, potassium 4.0, chloride 107, bicarb 25, BUN 35, creatinine 1.2, random blood sugar is 94. IMPRESSION: This is an 87-year-old male, admitted with decompensated congestive heart failure secondary to rapid atrial fibrillation which caused the initiation of Cardizem CD to be added to his regime and the discontinuation of Cardura for blood pressure management, with comorbidities of organic brain syndrome, anxiety neurosis, atrial fibrillation, on chronic Coumadin, hyperlipidemia, depression, peptic ulcer disease with gastroesophageal reflux disease, degenerative arthritis. PLAN: Continue heart-healthy diet. He remains on a 1200cc p.o. daily fluid restriction. He continues on Tylenol 650 p.o. q.6h. p.r.n. pain or temperature greater than 101. He is receiving Pepcid 20 mg p.o. at bedtime, Paxil 10 mg p.o. daily, Namenda 10 mg p.o. at bedtime, Lipitor 10 mg p.o. at dinner time, Lasix 40 mg p.o. daily, K-Dur 20 mEq p.o. daily. His Coumadin, because of an elevated PT/INR, is on hold. He continues on Colace 100 mg p.o. b.i.d., Cardizem CD 180 mg p.o. daily, Aricept 10 mg p.o. at bedtime, and Ativan 0.5 mg p.o. q.4h. p.r.n. anxiety. The patient will have a repeat PT/INR in the morning. He continues on a heart-healthy diet. He remains on aspiration and fall precautions, and his bed alarms are on at all times. He is receiving physical and occupational therapy. Once discharged, he will be under the observation of his family who provides 24-hour supervision for this patient. Although overall prognosis remains poor, he is stable at present. Greater than 40 minutes was spent in the care, counseling, management, review of labs, x-rays, and discussion of this patient with Nursing, Social Service, Physical Therapy, and co-consultants. Afshan Lopez MD MTDTommie
[2017-08-21 17:02] VITALS: PULSE 50; RESP 16; TEMP 98.7; O2SAT 98
[2017-08-22 06:31] LABS: INR 2.73 (0.93-1.08)
[2017-08-22] MEDS: Potassium Chloride 20 mEq ER Tab PO SCH (08:39)
[2017-08-22] MEDS: diltiaZEM 180 mg/24 Hours CD Cap PO SCH (10:04)
[2017-08-22 10:06] VITALS: BP 121/66
--- NOTE | 2017-08-22 13:28 | DS ---
FINAL DIAGNOSIS: Congestive heart failure, improved; chronic organic brain syndrome; Alzheimer's dementia; chronic depression; anxiety neurosis; agitation syndrome; chronic hypertension; decompensated CHF resolved, rapid atrial fibrillation, improved. The patient is on oral Coumadin for stroke prophylaxis with history of rapid atrial fibrillation, history of hyperlipidemia, peptic ulcer disease with gastroesophageal reflux disease, degenerative arthritis. DISPOSITION: Home with family providing 24 hours supervision for this patient. DISCHARGE DIET: Heart-healthy 1200 mL p.o. fluid restricted. DISCHARGE MEDICATIONS: Aricept 10 mg p.o. at bedtime; Cardizem CD 180 mg p.o. daily; Colace 100 mg p.o. b.i.d., Coumadin 2 mg p.o. daily; K-Dur 20 mEq p.o. daily; Lasix 40 mg p.o. daily; Zocor 10 mg p.o. at dinner time; Namenda 10 mg p.o. at bedtime; Paxil 10 mg p.o. daily; Pepcid 20 mg p.o. at bedtime. SUMMARY: This 87-year-old male was admitted to [facility] for treatment of rapid atrial fibrillation with decompensated systolic congestive heart failure and comorbidities of organic brain syndrome, Alzheimer's dementia, anxiety neurosis, chronic depression, agitation syndrome with need for adjustment of medications for chronic hypertension. Initially he had a supratherapeutic PT/INR on Coumadin and history of peptic ulcer disease with GERD and degenerative arthritis. The patient received physical and occupational therapy, gait retraining and balance retraining. He was monitored with electrolytes, PT INR levels and hemoglobin/hematocrit during his hospital stay. PHYSICAL EXAMINATION: VITAL SIGNS: At the time of discharge, temperature 98.7, respirations 16, pulse 61 and blood pressure 125/85 with a pulse ox of 100% room air. LABORATORY DATA: Showed hemoglobin 13.8, hematocrit 41.3. PT/INR 2.73. Sodium 142, K 4.0, chloride 107, bicarb 25, BUN 35, creatinine 1.2, random blood sugar 94. Calcium level normal 10.8. This patient is discharge to home to the care of his family. He requires 24 hours supervision for his safety and to ensure the adequate intake of his multiple medications. He will be monitored by home physical therapy, home care services. Greater than 35 minutes were spent in the care, counseling and management of discharge orders for this patient today. His was instructed on diet, fluid restrictions and adjustment of medications. New prescriptions were outlined, labs were reviewed, case was discussed with nursing, family, the patient, social service, and physical therapy. All questions were answered. Overall prognosis though poor, remains stable at present. Afshan Lopez MD MTDD
== END 2017-08-22 14:11 | disposition home or self-care (01) | DRG 293 ==
LOC: TRCU 16:03
PROVIDERS: ADMIT Internal Medicine; ATTEND Internal Medicine
PROC: F07Z9FZ Gait Training/Functional Ambulation Treatment using Assistive, Adaptive, Supportive or Protective Equipment (ICD-10-PCS; principal; 2017-08-14)
PROC: F07M6ZZ Therapeutic Exercise Treatment of Musculoskeletal System - Whole Body (ICD-10-PCS; 2017-08-14)
PROC: F08Z2ZZ Grooming/Personal Hygiene Treatment (ICD-10-PCS; 2017-08-15)
PROC: F08Z4ZZ Home Management Treatment (ICD-10-PCS; 2017-08-15)
DX: I11.0 Hypertensive heart disease with heart failure (principal); G30.9 Alzheimer's disease, unspecified; I48.2 Chronic atrial fibrillation; F02.80 Dementia in other diseases classified elsewhere, unspecified severity, without behavioral disturbance, psychotic disturbance, mood disturbance, and anxiety; I50.23 Acute on chronic systolic (congestive) heart failure; E78.5 Hyperlipidemia, unspecified; F09 Unspecified mental disorder due to known physiological condition; F32.9 Major depressive disorder, single episode, unspecified; F41.1 Generalized anxiety disorder; I25.118 Atherosclerotic heart disease of native coronary artery with other forms of angina pectoris; K21.9 Gastro-esophageal reflux disease without esophagitis; M19.90 Unspecified osteoarthritis, unspecified site; R79.1 Abnormal coagulation profile; Z79.01 Long term (current) use of anticoagulants; Z79.899 Other long term (current) drug therapy; Z87.11 Personal history of peptic ulcer disease

== ENCOUNTER 2018-11-02 13:33 | Inpatient (IN) | payer MEDICARE, MEDICAID ==
[2018-11-02 13:45] VITALS: BMI 23.1
--- NOTE | 2018-11-02 14:15 | ED PDOC ---
Arrival/HPI - General Time Seen by Provider: 11/02/18 13:50 Historian: Patient, Spouse () - History of Present Illness Narrative History of Present Illness (Text): 11/02/18 14:15 A 88 year old male, whose past medical history includes prostate cancer in 2002, atrial fibrillation, stent, dementia, and arthritis, presents to the emergency department accompanied and translated by his complaining of fever for the past few days. Patient's reports patient has been experiencing body chills, vomiting, and cough and had his blood pressure measured to be unusually high at 150/90. Patient denies any chest pain, abdominal pain, or any other complaints. PMD: Dr. Lopez Time/Duration: Other (past few days) Symptom Onset: Gradual Symptom Course: Unchanged Activities at Onset: Light Context: Home Past Medical History - Provider Review Nursing Documentation Reviewed: Yes - Cardiac Hx Cardiac Disorders: Yes Hx Hypertension: Yes - Pulmonary Hx Chronic Obstructive Pulmonary Disease (COPD): Yes - Neurological Hx Neurological Disorder: Yes Hx Alzheimer's Disease: Yes Hx Dementia: Yes Hx Transient Ischemic Attacks (TIA): Yes - HEENT Hx HEENT Disorder: No - Renal Hx Renal Disorder: No - Endocrine/Metabolic Hx Endocrine Disorders: No - Hematological/Oncological Hx Blood Disorders: No - Integumentary Hx Dermatological Disorder: Yes Other/Comment: multiple brown moles to abd chest and back, multiple skin discoloration ble - Musculoskeletal/Rheumatological Hx Arthritis: Yes - Gastrointestinal Hx Gastroesophageal Reflux: Yes - Genitourinary/Gynecological Hx Genitourinary Disorders: No Hx Reproductive Disorders: No - Psychiatric Hx Psychophysiologic Disorder: No Hx Anxiety: No Hx Emotional Abuse: No Hx Physical Abuse: No Hx Substance Use: No - Past Surgical History Past Surgical History: Non-Contributing - Anesthesia Hx Anesthesia: Yes Hx Anesthesia Reactions: No Hx Malignant Hyperthermia: No - Suicidal Assessment Feels Threatened In Home Enviroment: No Family/Social History - Physician Review Nursing Documentation Reviewed: Yes Family/Social History: No Known Family HX Smoking Status: Former Smoker Hx Alcohol Use: No Hx Substance Use: No Hx Substance Use Treatment: No Allergies/Home Meds Allergies/Adverse Reactions: Allergies Penicillins Allergy (Verified 08/17/17 01:50) ANAPHYLAXIS unknown Home Medications: Home Meds Medication Instructions Recorded Confirmed Simvastatin 10 mg PO DAILY 09/20/16 11/02/18 Review of Systems - Physician Review All systems were reviewed & negative as marked: Yes - Review of Systems Cardiovascular: absent: Chest Pain Gastrointestinal: absent: Abdominal Pain Physical Exam - Physical Exam Narrative Physical Exam (Text): 11/02/18 14:16 Constitutional: No acute distress. Head: Normocephalic. Atraumatic. Eyes: PERRL. ENT: Moist mucous membranes. Neck: Supple. Cardiovascular: Irregular rhythm, positive murmur, borderline tachycardia. Chest: No tenderness. Respiratory: Left lower crackles. GI: Soft. Nontender. Nondistended. Back: No CVA tenderness. Musculoskeletal: No tenderness or swelling of extremities. Skin: No rash. Neurologic: Alert, no focal deficit. Vital Signs Reviewed: Yes Vital Signs Temp Pulse Resp BP Pulse Ox 11/02/18 13:56 102.5 F H 99 H 17 141/73 89 L Temperature: Febrile Blood Pressure: Normal Pulse: Tachycardic Respiratory Rate: Normal Appearance: Positive for: Non-Toxic Medical Decision Making ED Course and Treatment: 11/02/18 14:16 Impression: 88 year old male presenting to the emergency room complaining of fever. Plan: -- VBG -- EKG -- Labs -- Chest X-ray -- Tylenol -- Zofran -- IV fluids -- Blood culture -- Urine culture -- Influena A B -- Urinalysis -- Reassess and disposition Prior Visits: Notes and results from previous visits were reviewed. Progress Notes: 11/02/18 14:36 CODE SEPSIS called. 11/02/18 15:02 EKG: Ordered, reviewed, and independently interpreted the EKG. Rate : 93 BPM Rhythm : Atrial fibrillation. Interpretation : No ST-segment elevations. 11/02/18 15:11 Procedure: Chest X-ray Dictator: Duc Gomez. Impression: No active disease. Dr. Lopez accepts patient to her service. - Scribe Statement The provider has reviewed the documentation as recorded by the Georges Quezada All medical record entries made by the Scribe were at my direction and personally dictated by me. I have reviewed the chart and agree that the record accurately reflects my personal performance of the history, physical exam, medical decision making, and the department course for this patient. I have also personally directed, reviewed, and agree with the discharge instructions and disposition. Disposition/Present on Arrival - Present on Arrival Any Indicators Present on Arrival: No History of DVT/PE: No History of Uncontrolled Diabetes: No Urinary Catheter: No History Surgical Site Infection Following: None - Disposition Have Diagnosis and Disposition been Completed?: Yes Diagnosis: Sepsis, Pneumonia, COPD (chronic obstructive pulmonary disease) Disposition: HOSPITALIZED Disposition Time: 17:00 Patient Plan: Admission, Telemetry Condition: GUARDED Discharge Instructions (ExitCare): Sepsis (ED)
[2018-11-02] MEDS ORDERED: Sodium Chloride 0.9% 1,000 ML IV STA (14:18)
[2018-11-02 14:34] LABS: VENOUS BLOOD GAS PO2 36 mm/Hg (30-55)
[2018-11-02] MEDS ORDERED: Vancomycin 1gm in NS 250ml 1 GM/250 ML BAG IVPB STA (14:36)
[2018-11-02] MEDS ORDERED: Cefepime 1gm in NS 100ml 1 GM/100 ML BAG IVPB STA ×2 (14:36→18:12)
[2018-11-02 14:38] LABS: BASO # 0.01 K/mm3 (0.0-2.0); BASO % 0.1 % (0.0-3.0); EOS % 0.3 % (1.5-5.0); LYMPH # 0.3 (1.2-3.4); LYMPH % 3.5 % (22.0-35.0); MEAN CELL VOLUME 91.3 fl (80.0-105.0); MEAN CORPUSCULAR HEMOGLOBIN 29.1 pg (25.0-35.0); MEAN CORPUSCULAR HGB CONC 31.9 g/dl (31.0-37.0); MEAN PLATELET VOLUME 9.7 fl (7.0-11.0); MONO # 0.2 (0.1-0.6); MONO % 2.4 % (1.0-6.0); PLATELET COUNT 158 10^3/uL (120.0-450.0); RBC 4.46 10^6/uL (3.5-6.1); RED CELL DISTRIBUTION WIDTH 14.6 % (11.5-14.5)
[2018-11-02 14:43] LABS: INR 1.6; PARTIAL THROMBOPLASTIN TIME 33.6 Seconds (26.9-38.3); PROTHROMBIN TIME 17.8 SECONDS (9.4-12.5)
[2018-11-02 14:52] LABS: ALB/GLOB RATIO 1.2 (1.1-1.8); ALBUMIN 4.2 g/dL (3.0-4.8); ALT/SGPT 17 U/L (7-56); AST/SGOT 26 U/L (17-59); BLOOD UREA NITROGEN 27 mg/dL (7-21); CALCIUM 9.6 mg/dL (8.4-10.5); GFR NON-AFRICAN AMERICAN > 60; LIPASE 111 U/L (23-300)
[2018-11-02 14:55] LABS: B-TYPE NATRIURETIC PEPTIDE 2960 pg/mL (0-450)
[2018-11-02] MEDS ORDERED: Potassium Phosphate 3 mmol/ml Inj IV STA (14:56)
[2018-11-02] MEDS ORDERED: Potassium Phosphate 15 MMOLE in Sodium Chloride 0.9% 250 ML IVPB ONE (15:00)
--- NOTE | 2018-11-02 15:10 | RAD ---
Date of service: 11/02/2018 HISTORY: fever COMPARISON: 08/18/2017 FINDINGS: LUNGS: No active pulmonary disease. PLEURA: No significant pleural effusion identified, no pneumothorax apparent. CARDIOVASCULAR: No aortic atherosclerotic calcification present. Aortic calcification Mild cardiomegaly no pulmonary vascular congestion. OSSEOUS STRUCTURES: No significant abnormalities. VISUALIZED UPPER ABDOMEN: Normal. OTHER FINDINGS: None. IMPRESSION: No active disease.
[2018-11-02 15:28] LABS: ATYPICAL LYMPHOCYTE 0 % (0.0-0.0); BAND 0 % (0-2); EOSINOPHIL 1 % (0.0-3.0); LYMPHOCYTE 4 % (22.0-35.0); MONOCYTE 3 % (1.0-6.0); NEUTROPHIL 92 % (50.0-70.0)
[2018-11-02 15:29] LABS: HYPOCHROMIA 2+; PLATELET ESTIMATE NORMAL (NORMAL); ROULEAU 2+; TOXIC GRANULATION 2+
[2018-11-02 17:35] LABS: VENOUS BLOOD GAS PO2 81 mm/Hg (30-55)
[2018-11-02] MEDS ORDERED: Azithromycin 500MG/NS 250ml 500 MG/250 ML BAG IVPB STA (18:04)
[2018-11-02] MEDS ORDERED: levoFLOXacin 750 mg in D5W 750 MG/150 ML BAG IVPB STA (18:05)
[2018-11-02 18:42] LABS: URINE BILIRUBIN NEGATIVE (NEGATIVE); URINE BLOOD NEGATIVE (NEGATIVE); URINE GLUCOSE (UA) NEGATIVE (NEGATIVE); URINE LEUKOCYTE ESTERASE NEGATIVE Leu/uL (NEGATIVE); URINE PROTEIN TRACE mg/dL (<30 mg/dL)
[2018-11-02 18:43] LABS: URINE APPEARANCE CLEAR (CLEAR); URINE COLOR YELLOW (YELLOW)
[2018-11-02] MEDS ORDERED: TraMADol/Apap 37.5/325 mg Tab PO PRN (21:26)
[2018-11-02] MEDS ORDERED: TraMADol/Apap 37.5/325 mg Tab PO SCH (22:00)
--- NOTE | 2018-11-02 23:15 | CARD ---
APPROVED REPORT Date of service: 11/02/2018 EKG Measurement Heart [id number] <Conclusion> Atrial fibrillation with premature ventricular or aberrantly conducted complexes Left axis deviation Left ventricular hypertrophy with QRS widening Intraventriclar conduction delay of LBBB type NDSTT abnormalities Abnormal ECG
[2018-11-03] MEDS ORDERED: TraMADol/Apap 37.5/325 mg Tab PO PRN (11:03)
[2018-11-03] MEDS ORDERED: guaiFENesin 100 mg/5 ml Syrup UD PO PRN (11:28)
[2018-11-03] MEDS ORDERED: Azithromycin 500 MG in Sodium Chloride 0.9% 250 ML IV SCH (11:30)
[2018-11-03] MEDS ORDERED: Cefepime (Maxipime) 1 g Inj IVPB SCH (11:30)
[2018-11-03] MEDS ORDERED: Potassium Chloride 20 mEq ER Tab PO ONE (12:00)
[2018-11-03] MEDS ORDERED: diltiaZEM 180 mg/24 Hours CD Cap PO ONE (12:00)
[2018-11-03] MEDS: Cefepime 1gm in NS 100ml 1 GM/100 ML BAG IVPB SCH (12:15)
[2018-11-03] MEDS: Levalbuterol 0.63 MG/3 ML Inhal Soln UD IH SCH ×2 (13:38→19:30)
[2018-11-03 13:54] LABS: INR 1.67; PROTHROMBIN TIME 18.9 SECONDS (9.4-12.5)
[2018-11-03] MEDS: MethylPREDNISolone 40 mg Vial IVP SCH (21:21)
--- NOTE | 2018-11-03 21:41 | HP ---
DATE OF EXAM: 11/02/2018 HISTORY OF PRESENT ILLNESS: This 88-year-old male was examined in the [facility] ER on the evening of 11/02/2018. His case was reviewed in detail with Dr. Juan Rothman, emergency room physician. The patient was brought to the [facility] ER by family with a complaint of vomiting, cough, chills and temperature in excess of 102 at home for the previous 3 days. The patient has multiple medical problems including chronic atrial fibrillation, organic brain syndrome, agitation syndrome, chronic hypertension, congestive heart failure, cardiomyopathy, hyperlipidemia, depression, peptic ulcer disease with GERD and degenerative arthritis. According to the , he was not improving with Tylenol and cough syrup at home and was brought to [facility] for further evaluation of the above. While in the emergency room, he was noted to have a temperature of 102.5 and was admitted for sepsis, rule out exacerbation of chronic obstructive pulmonary disease. REVIEW OF SYSTEMS: HEAD: No headache or seizure. CONSTITUTIONAL: Fever of 102.5. EYES: No change in visual acuity. EARS: No hearing loss. Throat: No swallowing difficulty. NECK: No stiffness. CARDIAC: As per HPI. PULMONARY: He did have cough and congestion with occasional wheezing. ABDOMEN: Soft and vomiting. : No reports of dysuria. SKIN: No rash. VASCULAR: No claudication. PSYCHOLOGICAL: As per HPI. NEUROLOGICAL: No recent arm or leg weakness. No slurred speech. FAMILY HISTORY: Noncontributory. SOCIAL HISTORY: He is a nondrinker, nonsmoker, non-IV drug misuser. He is retired. OUTPATIENT MEDICATIONS: Included Cardizem, Coumadin, Aricept, Colace, Zocor, K-Dur, Paxil, Namenda, Lasix and Pepcid. ALLERGIES: HE HAS ALLERGIES TO PENICILLIN. PHYSICAL EXAMINATION: VITAL SIGNS: At the time of my interview found that the patient was alert on an emergency room gurney with a temperature of 102.5, respirations 17, pulse 96 and blood pressure 125/69, pulse ox 89% on room air. HEENT: Head normocephalic, atraumatic. Eyes: No icterus. Ears: Clear. Throat: Noninjected. NECK: Supple. HEART: Irregular S1, S2. LUNGS: With rhonchi and expiratory wheezing. ABDOMEN: Soft. No rebound. EXTREMITIES: No edema. SKIN: No rash. VASCULAR: No claudication. PSYCHOLOGICAL: Alert, but confused. NEUROLOGIC: Moves all four extremities. MUSCULOSKELETAL: DJD of both knees. LABORATORY DATA: Showed white count 8000, hemoglobin 13, hematocrit 40.7, platelets 158,000, 93% neutrophils. PT/INR 1.6, PTT 33.6. Sodium 145, K 3.5, chloride 108, bicarb 27, BUN 27, creatinine 1.1. Random blood sugar 148, calcium 9.6, phosphorus 0.9. Magnesium 2, bilirubin 0.8. AST 26, ALT 17, alk phos 107. BNP 2960. Lipase 111. Urinalysis showed no bacteria. Influenza A and B serologies were negative. Chest x-ray was reviewed. It showed evidence of COPD. EKG was reviewed. It showed atrial fibrillation with nonspecific ST-T wave changes. IMPRESSION: An 88-year-old male with sepsis, comorbidities of organic brain syndrome, agitation, chronic hypertension, atrial fibrillation, congestive heart failure, cardiomyopathy, hyperlipidemia, depression, anxiety, peptic ulcer disease with gastroesophageal reflux disease, degenerative arthritis. PLAN: To continue Aricept, Cardizem, Colace, Coumadin, K-Dur, Lasix, Lipitor. He will be given Maxipime parenterally, IV Zithromax, Namenda, Paxil, Pepcid, Robitussin, Solu-Medrol, Tylenol, p.r.n. Ultracet, Xopenex inhalational therapy and p.r.n. Zofran. He is ordered to have a heart-healthy diet. Blood and urine cultures have been sent. He will be given fall precautions, aspiration precautions and an order for physical therapy. Based on clinical progress, additional diagnostic workup and testing will be entertained. Greater than 75 minutes was spent in the care management, review of labs, orders and x-rays, and discussion of this patient with emergency room physicians. All questions were answered. Afshan Lopez MD
--- NOTE | 2018-11-04 00:33 | CP.PCM.PN ---
Subjective - Date & Time of Evaluation Date of Evaluation: 11/04/18 Time of Evaluation: 00:31 - Subjective Subjective: PGY-3 for House Doc CC: POx hypoxia S: Mr Hernández, 88 year old male, whose past medical history includes prostate cancer in 2002, atrial fibrillation, stent, dementia, and arthritis, admitted for COPD exacerbation due to PNA. He started zithromx, cefepime, steroid. on lasix 40po. PCP checked o2 saturation 50% Nasal cannula noted to be disconnected from oxygen outlet. Patient placed on o2@6lpm via NC as per respiratory Xiang. O2 saturation increasing up to 86% on o2@6lpm. No distress noted. O: 111/54, HR 61, POx 89-91 on 4L Echo EF 36, RVSP 80 Pulm: Crackles, no wheezes/rhonchi Pt speaks sri lankan, but no tripod, no SOB, no pauses when speak A: COPD exac due to PNA, sepsis Hypoxia, acute on chronic - improves to 91 after reposition Systolic CHF - CXR to see if fluid overload - HOB 45 degrees - laxis PRN pending CXR result - face mask is needed 2AM: CXR showed venous congestion. Labs resulted VS: POx 88 on 4L NC, 112/60 CHF, systolic, acute on chronic, BNP 10,600 OMER with Cre 1.4 (baseline 1-1.1) likely pre-renal from CHF exacerbation Hypokalemia 5.1, likely from OMER and K suppl. - lasix 20 IV x 1 - face mask with 6-8 L PRN - strict i/o, daily weight - As for hyperK, likely will decrease after lasix. recheck BMP in AM - hob 45 degrees, aspiration precaution - defer to primary whether to consult cardiology or get an echocardiogram Objective - Vital Signs/Intake and Output Vital Signs (last 24 hours): Temp Pulse Resp BP Pulse Ox 98.1 F 74 18 121/67 95 11/03/18 18:00 11/03/18 18:00 11/03/18 18:00 11/03/18 18:00 11/03/18 09:00 Intake and Output: 11/03/18 11/04/18 18:59 06:59 Intake Total 100 100 Balance 100 100 - Medications Medications: Current Medications Acetaminophen (Tylenol 325mg Tab) 650 mg PO Q6H PRN PRN Reason: Pain, moderate (4-7) Last Admin: 11/03/18 12:11 Dose: 650 mg Atorvastatin Calcium (Lipitor) 10 mg PO HS [facility] Last Admin: 11/03/18 21:21 Dose: 10 mg Diltiazem HCl (Cardizem Cd) 180 mg PO DAILY [facility] Docusate Sodium (Colace) 100 mg PO BID [facility] Last Admin: 11/03/18 17:58 Dose: Not Given Donepezil HCl (Aricept) 10 mg PO HS [facility] Last Admin: 11/03/18 21:21 Dose: 10 mg Famotidine (Pepcid) 20 mg PO 2200 [facility] Last Admin: 11/03/18 21:21 Dose: 20 mg Furosemide (Lasix) 40 mg PO DAILY [facility] Guaifenesin (Robitussin) 100 mg PO Q4H PRN PRN Reason: Cough Azithromycin (Zithromax 500mg In Ns) 500 mg in 250 mls @ 250 mls/hr IVPB DAILY [facility]; Protocol Cefepime HCl (Maxipime 1gm) 1 gm in 100 mls @ 100 mls/hr IVPB Q24H [facility] Last Admin: 11/03/18 12:15 Dose: Not Given Levalbuterol HCl (Xopenex) 0.63 mg IH TIDRESP [facility] Last Admin: 11/03/18 19:30 Dose: 0.63 mg Memantine (Namenda) 10 mg PO HS [facility] Last Admin: 11/03/18 21:21 Dose: 10 mg Methylprednisolone (Solu-Medrol) 30 mg IVP Q12 [facility] Last Admin: 11/03/18 21:21 Dose: 30 mg Ondansetron HCl (Zofran Inj) 4 mg IVP Q6H PRN PRN Reason: Nausea/Vomiting Paroxetine HCl (Paxil) 10 mg PO DAILY [facility] Potassium Chloride (K-Dur 20 Meq Er Tab) 20 meq PO BRK [facility] Tramadol/Acetaminophen (Ultracet 37.5/325 Mg) 1 tab PO Q8H PRN PRN Reason: Pain, severe (8-10) Warfarin Sodium (Coumadin) 2 mg PO 1800 [facility]; Protocol Last Admin: 11/03/18 18:01 Dose: 2 mg - Labs Labs: 11/02/18 14:15 11/02/18 14:15 PT 18.9 SECONDS (9.4-12.5) H 11/03/18 13:44 INR 1.67 11/03/18 13:44 APTT 33.6 Seconds (26.9-38.3) 11/02/18 14:15
[2018-11-04 00:48] LABS: BASO # 0.01 K/mm3 (0.0-2.0); BASO % 0.2 % (0.0-3.0); EOS % 0.7 % (1.5-5.0); HEMOGLOBIN 12.7 g/dL (14.0-18.0); LYMPH # 0.3 (1.2-3.4); LYMPH % 4.6 % (22.0-35.0); MEAN CELL VOLUME 92.6 fl (80.0-105.0); MEAN CORPUSCULAR HEMOGLOBIN 29.3 pg (25.0-35.0); MEAN CORPUSCULAR HGB CONC 31.6 g/dl (31.0-37.0); MEAN PLATELET VOLUME 10.2 fl (7.0-11.0); MONO # 0.1 (0.1-0.6); MONO % 1.1 % (1.0-6.0); RBC 4.34 10^6/uL (3.5-6.1); RED CELL DISTRIBUTION WIDTH 15.5 % (11.5-14.5); WHITE BLOOD COUNT 5.6 10^3/uL (4.5-11.0)
[2018-11-04 01:14] LABS: ALB/GLOB RATIO 1.1 (1.1-1.8); ALBUMIN 3.8 g/dL (3.0-4.8); CALCIUM 9.1 mg/dL (8.4-10.5)
[2018-11-04 06:35] LABS: CALCIUM 8.8 mg/dL (8.4-10.5)
[2018-11-04] MEDS: Levalbuterol 0.63 MG/3 ML Inhal Soln UD IH SCH ×3 (08:13→19:23)
[2018-11-04] MEDS: MethylPREDNISolone 40 mg Vial IVP SCH ×2 (09:38→21:20)
[2018-11-04] MEDS: Potassium Chloride 20 mEq ER Tab PO SCH (09:38)
[2018-11-04] MEDS: diltiaZEM 180 mg/24 Hours CD Cap PO SCH (09:40)
[2018-11-04] MEDS: Azithromycin 500MG/NS 250ml 500 MG/250 ML BAG IVPB SCH (09:40)
--- NOTE | 2018-11-04 11:24 | RAD ---
Date of service: 11/04/2018 HISTORY: hypoxia COMPARISON: Comparison is made with the previous study dated 11/02/2018 FINDINGS: LUNGS: There is focal haziness noted in the inferior aspect of the right lung upper small foci of haziness noted at the mid left lung. PLEURA: No significant pleural effusion identified, no pneumothorax apparent. CARDIOVASCULAR: No aortic atherosclerotic calcification present. The cardiac silhouette is enlarged. No pulmonary vascular congestion. OSSEOUS STRUCTURES: No significant abnormalities. VISUALIZED UPPER ABDOMEN: Normal. OTHER FINDINGS: None. IMPRESSION: Focal haziness and possible infiltrate at the right lung upper lobe. Cardiomegaly.
[2018-11-04] MEDS: Cefepime 1gm in NS 100ml 1 GM/100 ML BAG IVPB SCH (11:34)
[2018-11-04 13:02] LABS: INR 1.43; PROTHROMBIN TIME 16.2 SECONDS (9.4-12.5)
--- NOTE | 2018-11-04 18:00 | PN ---
DATE: 11/04/2018 SUBJECTIVE: This 88-year-old male was examined on the cardiac singh at the [facility] on the morning of 11/04/2018. This case was reviewed in detail with his nurse Raquel Cage, registered nurse. The patient remains weak and deconditioned. He has a cough, expiratory wheezing and is wearing nasal O2. He was admitted with a fever in excess of 102 and also has comorbidities as previously outlined. PHYSICAL EXAMINATION: VITAL SIGNS: Today, he remains in atrial fibrillation on the personnel monitor. Temperature is 98.1, respirations 18, pulse 82 and blood pressure 132/83. He is wearing 4 liters of nasal O2. HEENT: Head: Normocephalic, atraumatic. Eyes: No icterus. Ears: Clear. Throat: Noninjected. NECK: Supple. HEART: Irregular S1, S2. LUNGS: With rhonchi and expiratory wheezing. ABDOMEN: Soft. EXTREMITIES: No edema. SKIN: Without rash. NEUROLOGICAL: Deconditioned. VASCULAR: Legs warm to touch. PSYCHOLOGICAL: Confused with periods of agitation. LABORATORY DATA: White count 5600, hemoglobin 12.7, hematocrit 40.2, platelets 135,000. PT/INR 1.43. Sodium 145, K 4.8, chloride 111, bicarb 25, BUN 38, creatinine 1.4, random blood sugar 162, calcium 8.8. Phosphorous 3.4. Blood culture showed no growth at 24 hours. IMPRESSION: An 88-year-old male admitted with fever, probable sepsis, exacerbation of chronic obstructive pulmonary disease, deconditioning and comorbidities of organic brain syndrome, chronic atrial fibrillation, hypertension, history of congestive heart failure and cardiomyopathy, hyperlipidemia, depression, peptic ulcer disease with gastroesophageal reflux disease, and anemia of chronic disease and degenerative arthritis. PLAN: My plan at present is to continue Zofran, Zithromax, Xopenex, Tylenol, IV Solu-Medrol, Robitussin, Pepcid, Paxil, Namenda, IV Maxipime, Lipitor, Lasix, K-Dur, Colace, Cardizem, Aricept and Coumadin has been increased to 5 mg p.o. daily given his subtherapeutic INR since admission. He warrants daily INR and there is a communication to the nursing staff to hold any Coumadin dosing, any day his INR should be greater than 3. He continues on a heart-healthy diet, aspiration and fall precautions and is awaiting evaluation for transitional care rehab. Based on clinical progress, additional diagnostic workup and testing will be entertained. Greater than 35 minutes was spent in the care, review of this patient's case with nursing and adjustment of orders. All questions were answered. Afshan Lopez MD MTDD
[2018-11-05 04:33] VITALS: O2SAT 92
[2018-11-05] MEDS: Levalbuterol 0.63 MG/3 ML Inhal Soln UD IH SCH ×2 (08:57→14:22)
[2018-11-05] MEDS: diltiaZEM 180 mg/24 Hours CD Cap PO SCH (09:31)
[2018-11-05] MEDS: Potassium Chloride 20 mEq ER Tab PO SCH (09:31)
[2018-11-05] MEDS: Azithromycin 500MG/NS 250ml 500 MG/250 ML BAG IVPB SCH (09:32)
[2018-11-05] MEDS: MethylPREDNISolone 40 mg Vial IVP SCH (09:32)
[2018-11-05] MEDS: Insulin Reg-LOW-Coverage SC SCH ×2 (12:15→17:41)
[2018-11-05 13:16] LABS: INR 1.9; PROTHROMBIN TIME 21.5 SECONDS (9.4-12.5)
[2018-11-05] MEDS: Cefepime 1gm in NS 100ml 1 GM/100 ML BAG IVPB SCH (13:44)
--- NOTE | 2018-11-05 13:48 | DS ---
DATE: 11/05/2018 SUBJECTIVE: This 88-year-old male remains on the cardiac singh on the morning of 11/05/2018. His case was reviewed with nurse, Raquel Cage, registered nurse. The patient was admitted with fever in excess of 102, cough, congestion and exacerbation of chronic obstructive pulmonary disease. He remains in atrial fibrillation rhythm on the front desk monitor and does have a productive cough. PHYSICAL EXAMINATION: VITAL SIGNS: Temperature was 97.5, respirations 17, pulse 73 and blood pressure 128/76 with a pulse ox of 92%. HEENT: Head: Normocephalic, atraumatic. Eyes: No icterus. Ears: Clear. Throat: Noninjected. NECK: Supple. HEART: Irregular S1, S2. LUNGS: With rhonchi and expiratory wheezing that improve with coughing. ABDOMEN: Soft. EXTREMITIES: No edema. SKIN: Without rash. NEUROLOGICAL: Deconditioned. VASCULAR: Legs warm to touch. PSYCHOLOGICAL: Alert with periods of confusion and periods of agitation. LABORATORY DATA: White count 5600, hemoglobin 12.7, hematocrit 40.2, platelets 135,000. PT/INR 1.43. Sodium 145, K 4.8, chloride 111, bicarb 25, BUN 38, creatinine 1.4. Estimated GFR 48 mL per minute. Random sugar 162, calcium 8.8 and phosphorous 3.4. Urinalysis was unremarkable. Influenza A and B serologies were negative. IMPRESSION: This is an 88-year-old male, admitted with fever, exacerbation of chronic obstructive pulmonary disease and comorbidities of organic brain syndrome, history of agitation syndrome, chronic hypertension, chronic atrial fibrillation, on oral Coumadin, now with a subtherapeutic level, history of congestive heart failure, cardiomyopathy, hyperlipidemia, anxiety, depression, peptic ulcer disease with gastroesophageal reflux disease, degenerative arthritis and anemia of chronic disease. PLAN: Continue Aricept, Cardizem, Colace and Coumadin. He is having INR monitored and will have Coumadin held for any INR greater than 3. He continues on Lasix, K-Dur, Lipitor, IV Maxipime, Namenda, Paxil, Pepcid, Robitussin, IV Solu-Medrol, Tylenol, Xopenex inhalational therapy, oral Zithromax and Zofran p.r.n. nausea and vomiting. He is scheduled to have a heart-healthy diet. I will add insulin coverage before meals and at bedtime. He remains on aspiration and fall precautions and is awaiting evaluation for Transitional Care for reconditioning and gait training. Greater than 35 minutes was spent in the care management, review of labs, orders, x-rays, adjustment of medication orders and discussion of this patient with case management and nursing. All questions were answered. Afshan Lopez MD MTDTommie
[2018-11-05 18:28] VITALS: BP 117/60; PULSE 60; RESP 20; TEMP 97.8
== END 2018-11-05 19:43 | DRG 871 ==
LOC: ED 13:33 → ERH 18:05 → 2RNO 22:44
PROVIDERS: ADMIT Internal Medicine; ATTEND Internal Medicine
PROC: 3E0F7GC Introduction of Other Therapeutic Substance into Respiratory Tract, Via Natural or Artificial Opening (ICD-10-PCS; principal; 2018-11-03)
DX: A41.9 Sepsis, unspecified organism (principal); J18.9 Pneumonia, unspecified organism; I50.23 Acute on chronic systolic (congestive) heart failure; J44.1 Chronic obstructive pulmonary disease with (acute) exacerbation; J44.0 Chronic obstructive pulmonary disease with (acute) lower respiratory infection; I42.9 Cardiomyopathy, unspecified; N17.9 Acute kidney failure, unspecified; I11.0 Hypertensive heart disease with heart failure; F02.80 Dementia in other diseases classified elsewhere, unspecified severity, without behavioral disturbance, psychotic disturbance, mood disturbance, and anxiety; G30.9 Alzheimer's disease, unspecified; I48.2 Chronic atrial fibrillation; R09.02 Hypoxemia; E87.5 Hyperkalemia; D63.8 Anemia in other chronic diseases classified elsewhere; K21.9 Gastro-esophageal reflux disease without esophagitis; F09 Unspecified mental disorder due to known physiological condition; K27.9 Peptic ulcer, site unspecified, unspecified as acute or chronic, without hemorrhage or perforation; E78.5 Hyperlipidemia, unspecified; F32.9 Major depressive disorder, single episode, unspecified; F41.9 Anxiety disorder, unspecified; Z85.46 Personal history of malignant neoplasm of prostate; Z86.73 Personal history of transient ischemic attack (TIA), and cerebral infarction without residual deficits; Z79.01 Long term (current) use of anticoagulants

== ENCOUNTER 2018-11-05 19:43 | Inpatient (IN) | payer OTHER, MEDICAID ==
[2018-11-05 19:58] VITALS: BMI 24.4
[2018-11-05] MEDS ORDERED: guaiFENesin 100 mg/5 ml Syrup UD PO PRN (20:08)
[2018-11-05] MEDS ORDERED: TraMADol/Apap 37.5/325 mg Tab PO PRN (20:08)
[2018-11-05] MEDS: Insulin Reg-LOW-Coverage SC SCH (21:51)
[2018-11-05] MEDS: MethylPREDNISolone 40 mg Vial IVP SCH (21:52)
[2018-11-05] MEDS ORDERED: Pneumococcal 23-Valent Vaccine IM ONE (23:53)
[2018-11-05] MEDS ORDERED: Influenza Vaccine 60 mcg/0.5 mL SYR (4YR UP) IM ONE (23:53)
[2018-11-06] MEDS: Cefepime 1gm in NS 100ml 1 GM/100 ML BAG IVPB SCH (05:17)
[2018-11-06] MEDS: Insulin Reg-LOW-Coverage SC SCH ×4 (06:29→21:38)
[2018-11-06 06:30] LABS: EOS % 0.2 % (1.5-5.0); HEMOGLOBIN 13.6 g/dL (14.0-18.0); LYMPH # 0.3 (1.2-3.4); LYMPH % 4.6 % (22.0-35.0); MEAN CELL VOLUME 91.6 fl (80.0-105.0); MEAN CORPUSCULAR HEMOGLOBIN 29.4 pg (25.0-35.0); MEAN CORPUSCULAR HGB CONC 32.2 g/dl (31.0-37.0); MONO # 0.1 (0.1-0.6); MONO % 1.7 % (1.0-6.0); PLATELET COUNT 182 10^3/uL (120.0-450.0); RBC 4.62 10^6/uL (3.5-6.1); WHITE BLOOD COUNT 6.5 10^3/uL (4.5-11.0)
[2018-11-06 06:48] LABS: INR 2.88; PROTHROMBIN TIME 32.6 SECONDS (9.4-12.5)
[2018-11-06 06:49] LABS: BLOOD UREA NITROGEN 51 mg/dL (7-21); CALCIUM 9.4 mg/dL (8.4-10.5); GFR NON-AFRICAN AMERICAN > 60
[2018-11-06] MEDS: Levalbuterol 0.63 MG/3 ML Inhal Soln UD IH SCH ×3 (07:20→22:00)
[2018-11-06 08:12] LABS: LYMPHOCYTE 8 % (22.0-35.0); NEUTROPHIL 92 % (50.0-70.0)
[2018-11-06 08:13] LABS: PLATELET ESTIMATE NORMAL (NORMAL)
[2018-11-06] MEDS: Potassium Chloride 20 mEq ER Tab PO SCH (08:28)
[2018-11-06] MEDS: diltiaZEM 180 mg/24 Hours CD Cap PO SCH (09:54)
[2018-11-06] MEDS: MethylPREDNISolone 40 mg Vial IVP SCH ×3 (09:56→21:39)
[2018-11-06 13:47] LABS: INR 3.5; PROTHROMBIN TIME 39.6 SECONDS (9.4-12.5)
--- NOTE | 2018-11-06 21:37 | HP ---
DATE OF EXAM: 11/06/2018 HISTORY OF PRESENT ILLNESS: This 88-year-old male was examined at bedside on the morning of 11/06/2018. His case was reviewed in detail with nurse, Lyndsey Travis, registered nurse. The patient was admitted with cough, congestion, fever in excess of 102, and clinical evidence of exacerbation of chronic obstructive pulmonary disease with comorbidities of organic brain syndrome, agitation syndrome, chronic hypertension, chronic atrial fibrillation, history of congestive heart failure, atherosclerotic heart disease, insulin-dependent diabetes mellitus, hyperlipidemia, peptic ulcer disease with gastroesophageal reflux disease and anemia of chronic disease and degenerative arthritis. ALLERGY: THE PATIENT HAS ALLERGY TO PENICILLIN. SOCIAL HISTORY: The patient is a current nondrinker, nonsmoker, non IV drug misuser. He is retired. FAMILY HISTORY: Noncontributory. REVIEW OF SYSTEMS: CONSTITUTIONAL: He was admitted with a fever in excess of 102. HEAD: Denied headache or seizure. EYE: No change in visual acuity. EAR: No hearing loss. THROAT: No swallowing difficulty. NECK: No stiffness. CARDIAC: Has chronic hypertension, atherosclerotic heart disease, atrial fibrillation on Coumadin and congestive heart failure, and cardiomyopathy. PULMONARY: Chronic obstructive pulmonary disease. He had a productive cough of yellow sputum with no hemoptysis. GI: He has peptic ulcer disease with gastroesophageal reflux disease. : No dysuria. SKIN: Without rash. NEUROLOGICAL: No knowledge of stroke. VASCULAR: No claudication. PSYCHOLOGICAL: Periods of confusion and agitation. PHYSICAL EXAMINATION: VITAL SIGNS: The patient was out of bed to chair with a temperature of 97.8, respirations 18, pulse 62 and blood pressure of 139/81. HEAD: Normocephalic, atraumatic. EYES: No icterus. EARS: Clear. THROAT: Noninjected. NECK: Supple. HEART: Irregular S1, S2. LUNGS: With rhonchi and expiratory wheezing that improved with coughing. ABDOMEN: Soft. EXTREMITIES: No edema. SKIN: Without rash. NEUROLOGICAL: Unchanged. PSYCHOLOGICAL: Alert, but confused. VASCULAR: Legs warm to touch. LABORATORY DATA: White count 6500, hemoglobin 13.6, hematocrit 42.3, platelets 182,000. PT/INR 2.88. Sodium 142, K 4.7, chloride 108, bicarb 27, BUN 51, creatinine 1.1, random blood sugar 141 with calcium of 9.4. IMPRESSION: An 88-year-old male with exacerbation of chronic obstructive pulmonary disease and comorbidities of organic brain syndrome, agitation, chronic hypertension, atherosclerotic heart disease, atrial fibrillation and cardiomyopathy and CHF, insulin-dependent diabetes mellitus, hyperlipidemia, peptic ulcer disease with gastroesophageal reflux disease and degenerative arthritis. PLAN: My plans are to continue Zofran, Zithromax, inhalational Xopenex, Tylenol, IV Solu-Medrol, Robitussin p.r.n. cough, Pepcid, Paxil, Namenda, Maxipime, Lipitor, Lasix, K-Dur, insulin coverage, Coumadin will be dose reduced to 3 mg daily, given current level and monitoring INR and holding Coumadin any day INR is greater than 3. He continues on Colace, Cardizem, p.r.n. Ativan for agitation and Aricept. He is scheduled for physical therapy, fall precautions and based on clinical progress, additional diagnostic workup and testing will be entertained. Greater than 35 minutes was spent in the care management, outlining of orders and adjustment of medication with this patient and nursing. All questions were answered. Afshan Lopez MD MTDTommie
[2018-11-07] MEDS: Cefepime 1gm in NS 100ml 1 GM/100 ML BAG IVPB SCH (05:06)
[2018-11-07] MEDS: diltiaZEM 180 mg/24 Hours CD Cap PO SCH ×2 (06:27→10:04)
[2018-11-07] MEDS: Insulin Reg-LOW-Coverage SC SCH ×4 (06:32→21:44)
[2018-11-07] MEDS: Potassium Chloride 20 mEq ER Tab PO SCH (07:50)
[2018-11-07] MEDS: Levalbuterol 0.63 MG/3 ML Inhal Soln UD IH SCH ×3 (08:03→23:30)
[2018-11-07] MEDS: MethylPREDNISolone 40 mg Vial IVP SCH ×2 (10:07→22:19)
[2018-11-07 12:18] LABS: PROTHROMBIN TIME 50.3 SECONDS (9.4-12.5)
[2018-11-07 12:20] LABS: INR 4.45
--- NOTE | 2018-11-07 14:31 | PN ---
DATE: 11/07/2018 SUBJECTIVE: This 88-year-old male was examined at his bedside on the morning of 11/07/2018 with his nurse, Rosemarie present. The patient was agitated this morning. PHYSICAL EXAMINATION VITAL SIGNS: Noted to have a temperature of 97.7, respirations 22, pulse 88 and blood pressure 120/81. Pulse ox 90% on 2 liters nasal O2. HEENT: Head: Normocephalic, atraumatic. Eyes: No icterus. Ears: Clear. Throat: Noninjected. NECK: Supple. HEART: Irregular S1, S2. LUNGS: With rhonchi and expiratory wheezing. ABDOMEN: Soft. EXTREMITIES: No edema. SKIN: Without rash. NEUROLOGICAL: Deconditioned. VASCULAR: Legs warm to touch. PSYCHOLOGICAL: Easily agitated. LABORATORY DATA: White count 6500, hemoglobin 13.6, hematocrit 42.3, platelets 182,000. PT/INR was 3.5. Sodium 142, K 4.7, chloride 108, bicarbonate 27, BUN 51, creatinine 1.1, random blood sugar 147, calcium 9.4. IMPRESSION: This is an 88-year-old male with admission for exacerbation of chronic obstructive pulmonary disease and fever and comorbidities of organic brain syndrome; agitation syndrome; congestive heart failure; chronic hypertension; chronic atrial fibrillation, on oral Coumadin; insulin-dependent diabetes mellitus; hyperlipidemia; peptic ulcer disease with gastroesophageal reflux disease; degenerative arthritis. PLAN: The plan is to continue p.r.n. Zofran, oral Zithromax, inhalational Xopenex, Tylenol, IV Solu-Medrol, Robitussin, Pepcid, Paxil, Namenda, Lipitor, Lasix, K-Dur, Humulin insulin, Colace, Cardizem, Ativan and Aricept. He will have daily INRs. Coumadin will be held for any INR greater than 3. Based on clinical progress, additional diagnostic workup and testing will be entertained. Greater than 35 minutes was spent at the bedside and adjustment of orders for this patient today. All questions were answered. Afshan Lopez MD
[2018-11-08] MEDS: Insulin Reg-LOW-Coverage SC SCH ×4 (06:38→23:53)
[2018-11-08 06:54] LABS: INR 2.43; PROTHROMBIN TIME 27.5 SECONDS (9.4-12.5)
[2018-11-08] MEDS: Levalbuterol 0.63 MG/3 ML Inhal Soln UD IH SCH ×3 (07:32→20:15)
[2018-11-08] MEDS: Potassium Chloride 20 mEq ER Tab PO SCH (08:13)
[2018-11-08] MEDS: diltiaZEM 180 mg/24 Hours CD Cap PO SCH (10:18)
--- NOTE | 2018-11-08 15:47 | PN ---
DATE: 11/08/2018 SUBJECTIVE: This 88-year-old male remains hospitalized at [facility] on the morning of , 11/08/2018. This case was reviewed in detail with nurse, Vilma Bueno, registered nurse. The patient remains weak and deconditioned. He has periods of agitation. He was admitted with a fever in excess of 102 and exacerbation of chronic obstructive pulmonary disease. PHYSICAL EXAMINATION: VITAL SIGNS: Temperature is 98.2, respirations 20, pulse 64, blood pressure 141/84. Pulse ox 94%. HEENT: Head: Normocephalic, atraumatic. Eyes: No icterus. Ears: Clear. Throat: Noninjected. NECK: Supple. HEART: Irregular S1, S2. LUNGS: With occasional rhonchi and expiratory wheezing that improve with coughing. ABDOMEN: Soft. EXTREMITIES: No edema. SKIN: Without ulcerations.. NEUROLOGICAL: Deconditioned. VASCULAR: Legs warm to touch. PSYCHOLOGICAL: Chronic confusion. NEUROLOGICAL: Able to move all four extremities. LABORATORY DATA: White count 6500, hemoglobin 13.6, hematocrit 42.3, platelets 182,000. PT/INR 2.43, random blood sugar was 148, sodium 142, K 4.7, chloride 108, bicarb 27, BUN 51, creatinine 1.1, calcium 9.4. IMPRESSION: This is an 88-year-old male with exacerbation of chronic obstructive pulmonary disease, organic brain syndrome, agitation syndrome, anxiety neurosis, chronic hypertension, chronic atrial fibrillation, on oral Coumadin, atherosclerotic heart disease, history of congestive heart failure, insulin-dependent diabetes mellitus, hyperlipidemia, peptic ulcer disease with gastroesophageal reflux disease, degenerative arthritis. PLAN: Continue Zithromax, inhalational Xopenex, Tylenol, IV Solu-Medrol, Robitussin p.r.n. cough, Pepcid, Paxil, Namenda, Lipitor, Lasix, K-Dur, insulin, Colace, Cardizem, Ativan and Aricept. He is scheduled for physical therapy for reconditioning and gait training and Ativan has been adjusted to 1 mg every 8 hours p.r.n. agitation. He remains on nasal O2, a heart-healthy diet, aspiration and fall precautions and ultimate plan will be for discharge to home to the care of his family who provide 24-hour supervision of this patient as an outpatient. Greater than 35 minutes was spent in the care management, review of labs, orders, x-rays and discussion of this patient with physical therapy, social service, case management and nursing. All questions were answered. Afshan Lopez MD
[2018-11-08] MEDS: MethylPREDNISolone 40 mg Vial IVP SCH ×2 (16:09→21:51)
[2018-11-09] MEDS: Insulin Reg-LOW-Coverage SC SCH ×2 (08:02→14:19)
[2018-11-09] MEDS: Potassium Chloride 20 mEq ER Tab PO SCH (08:02)
[2018-11-09 08:27] LABS: PROTHROMBIN TIME 18.2 SECONDS (9.4-12.5)
[2018-11-09 08:29] LABS: INR 1.61
[2018-11-09] MEDS: Levalbuterol 0.63 MG/3 ML Inhal Soln UD IH SCH ×2 (08:47→13:02)
[2018-11-09] MEDS: diltiaZEM 180 mg/24 Hours CD Cap PO SCH (09:02)
[2018-11-09] MEDS: MethylPREDNISolone 40 mg Vial IVP SCH (09:56)
[2018-11-09 16:28] VITALS: BP 133/80; PULSE 68; RESP 18; TEMP 97.8; O2SAT 95
--- NOTE | 2018-11-10 02:56 | DS ---
FINAL DIAGNOSES: Exacerbation of chronic obstructive pulmonary disease, improved; chronic organic brain syndrome; chronic anxiety; chronic agitation; hypertension; stable atherosclerotic heart disease; stable systolic congestive heart failure; chronic atrial fibrillation, on oral Coumadin with therapeutic PT/INR; hyperlipidemia; peptic ulcer disease with gastroesophageal reflux disease; and degenerative arthritis. DISPOSITION: Home with family providing 24 hours supervision of this patient. DISCHARGE DIET: 2 g sodium, heart healthy. DISCHARGE MEDICATIONS: Paxil 10 mg p.o. daily, Namenda 10 mg p.o. at bedtime, Lasix 40 mg p.o. daily, Pepcid 20 mg p.o. at bedtime, Aricept 10 mg p.o. at bedtime, Colace 100 mg p.o. b.i.d., Cardizem CD 180 mg p.o. daily, Coumadin 2 mg p.o. daily, Zocor 10 mg p.o. daily, and potassium 20 mEq p.o. daily. HOSPITAL COURSE: This 88-year-old male was admitted to the [facility] with a fever in excess of 102 and signs and symptoms consistent with exacerbation of chronic obstructive pulmonary disease. The patient was treated with parenteral antibiotics, IV steroids, pulmonary toiletry and at the time of discharge is able to ambulate independently with a temperature of 97.5, respirations 20, pulse 60, blood pressure 138/82, and pulse ox 94% room air. LABORATORY DATA: His discharge labs show white count 6500, hemoglobin 13.6, hematocrit 42.3, and platelets 182,000. His PT/INR was 1.61 today and he will be given Coumadin 3 mg prior to discharge. Random blood sugar is 139. Sodium 142, K 4.7, chloride 108, bicarb 27, BUN 51, creatinine 1.1, and calcium 9.4. DISCHARGE INSTRUCTIONS: The patient is discharged to home to the care of his family. He was advised to get his INR checked by his PMD within the next week and they were also advised for any change in signs and symptoms to present directly to the [facility] ER for further evaluation of the above. Greater than 35 minutes was spent in the discharge management of this patient including review of labs orders and x-rays. All questions were answered. Afshan Lopez MD [facility] # [id number]
== END 2018-11-09 16:40 | disposition home or self-care (01) | DRG 945 ==
LOC: TRCU 19:43
PROVIDERS: ADMIT Internal Medicine; ATTEND Internal Medicine
PROC: F07Z9ZZ Gait Training/Functional Ambulation Treatment (ICD-10-PCS; principal; 2018-11-07)
PROC: F08Z4ZZ Home Management Treatment (ICD-10-PCS; 2018-11-07)
PROC: 3E0F7GC Introduction of Other Therapeutic Substance into Respiratory Tract, Via Natural or Artificial Opening (ICD-10-PCS; 2018-11-07)
DX: R53.1 Weakness (principal); J44.1 Chronic obstructive pulmonary disease with (acute) exacerbation; I50.22 Chronic systolic (congestive) heart failure; I42.9 Cardiomyopathy, unspecified; I11.0 Hypertensive heart disease with heart failure; I48.2 Chronic atrial fibrillation; I25.10 Atherosclerotic heart disease of native coronary artery without angina pectoris; K21.9 Gastro-esophageal reflux disease without esophagitis; E78.5 Hyperlipidemia, unspecified; F09 Unspecified mental disorder due to known physiological condition; F41.1 Generalized anxiety disorder; D63.8 Anemia in other chronic diseases classified elsewhere; E11.9 Type 2 diabetes mellitus without complications; K27.9 Peptic ulcer, site unspecified, unspecified as acute or chronic, without hemorrhage or perforation; M19.90 Unspecified osteoarthritis, unspecified site; Z79.4 Long term (current) use of insulin; Z79.01 Long term (current) use of anticoagulants

== ENCOUNTER 2019-02-01 11:55 | Inpatient (IN) | payer MEDICARE, MEDICAID ==
[2019-02-01 12:08] VITALS: BMI 25.1
--- NOTE | 2019-02-01 12:24 | ED PDOC ---
Arrival/HPI - General Chief Complaint: Psychiatric Evaluation Time Seen by Provider: 02/01/19 12:13 Historian: Patient - History of Present Illness Narrative History of Present Illness (Text): 02/01/19 12:24 An 88 year old Icelandic-speaking male (translation provided by daughter), whose past medical history includes prostate cancer in 2002, atrial fibrillation, cardiac stent, dementia, and arthritis, presents to the ED after being sent by his psychiatrist (Dr. Maxwell) who requests a psych evaluation and suggests patient be admitted to hospital. As per daughter, patient lives at home alone after his ex moved out because patient was aggressive towards her. Patient attends adult daycare 3 times a week, and the rest of the week he is taken care of by his daughter, whom he his also aggressive towards. Daughter reports patient was a smoker 50 years ago, but denies alcohol consumption. Secondary to his dementia, patient does not know where he is but he recognizes his daughter. Daughter denies any fevers, chills, headache, dizziness, chest pain, shortness of breath, dyspnea on exertion, cough, abdominal pain, nausea, vomiting, diarrhea, back pain, neck pain, urinary/bowel changes, or any other complaints. PMD: Dr. Lopez Psychiatrist: Dr. Maxwell Time/Duration: Prior to Arrival Symptom Onset: Gradual Symptom Course: Unchanged Activities at Onset: Light Context: Home Past Medical History - Provider Review Nursing Documentation Reviewed: Yes - Infectious Disease Hx of Infectious Diseases: None - Cardiac Hx Cardiac Arrhythmia: Yes (a fib) - Pulmonary Hx Respiratory Disorders: No - Neurological Hx Alzheimer's Disease: Yes Hx Dementia: Yes Hx Transient Ischemic Attacks (TIA): Yes - HEENT Hx HEENT Disorder: No - Renal Hx Renal Disorder: No - Endocrine/Metabolic Hx Endocrine Disorders: No - Hematological/Oncological Hx Blood Disorders: No - Integumentary Hx Dermatological Disorder: Yes Other/Comment: multiple brown moles to abd chest and back, multiple skin discoloration ble - Musculoskeletal/Rheumatological Hx Unsteady Gait: Yes (cane) - Gastrointestinal Hx Gastrointestinal Disorders: Yes - Genitourinary/Gynecological Hx Genitourinary Disorders: No Hx Reproductive Disorders: No - Psychiatric Hx Anxiety: No Hx Substance Use: No - Past Surgical History Past Surgical History: Non-Contributing - Anesthesia Hx Anesthesia: Yes Hx Anesthesia Reactions: No Hx Malignant Hyperthermia: No - Suicidal Assessment Feels Threatened In Home Enviroment: No Family/Social History - Physician Review Nursing Documentation Reviewed: Yes Family/Social History: Unknown Family HX Smoking Status: Former Smoker Hx Alcohol Use: No Hx Substance Use: No Hx Substance Use Treatment: No Allergies/Home Meds Allergies/Adverse Reactions: Allergies Penicillins Allergy (Verified 11/05/18 19:57) ANAPHYLAXIS unknown Home Medications: Home Meds Medication Instructions Recorded Confirmed Simvastatin 10 mg PO DAILY 09/20/16 11/05/18 Review of Systems - Physician Review All systems were reviewed & negative as marked: Yes - Review of Systems Constitutional: absent: Fatigue, Fevers Eyes: absent: Vision Changes ENT: absent: Hearing Changes Respiratory: absent: SOB, Cough Cardiovascular: absent: Chest Pain Gastrointestinal: absent: Abdominal Pain, Vomiting Genitourinary Male: absent: Dysuria, Hematuria Musculoskeletal: absent: Back Pain, Neck Pain Skin: absent: Rash Neurological: absent: Headache, Dizziness Endocrine: absent: Diaphoresis Hemo/Lymphatic: absent: Adenopathy Psychiatric: absent: Anxiety, Depression Physical Exam Vital Signs Reviewed: Yes Temperature: Afebrile Blood Pressure: Normal Pulse: Regular Respiratory Rate: Normal Appearance: Positive for: Well-Appearing, Non-Toxic, Comfortable Mental Status: Positive for: other (Alert) - Systems Exam Head: Present: Atraumatic, Normocephalic Pupils: Present: PERRL Extroacular Muscles: Present: EOMI Conjunctiva: Present: Normal Mouth: Present: Moist Mucous Membranes Neck: Present: Normal Range of Motion Respiratory/Chest: Present: Clear to Auscultation, Good Air Exchange. No: Respiratory Distress, Accessory Muscle Use Cardiovascular: Present: Regular Rate and Rhythm, Normal S1, S2. No: Murmurs Abdomen: No: Tenderness, Distention, Peritoneal Signs Upper Extremity: Present: Normal Inspection. No: Cyanosis, Edema Lower Extremity: Present: Normal Inspection. No: Edema Neurological: Present: GCS=15, CN II-XII Intact, Speech Normal Skin: Present: Warm, Dry, Normal Color. No: Rashes Psychiatric: Present: Alert. No: Oriented x 3 (not oriented to place, recognizes daughter) Medical Decision Making ED Course and Treatment: 02/01/19 12:41 Impression: An 88 year old male who was sent to the ED by his psychiatrist (Dr. Maxwell) for a psych evaluation. Plan: -- EKG -- Labs -- Chest X-Ray -- Urinalysis -- Reassess and disposition Prior Visits: Notes and results from previous visits were reviewed. Progress Notes: 02/01/19 14:[address] Smith covering for Dr. Lopez who agrees for admission. 02/01/19 15:46 EKG shows atrial fibrillation rate approximately [address] and T wave changes. - Scribe Statement The provider has reviewed the documentation as recorded by the [facility] Provider Scribe Attestation: All medical record entries made by the Scribe were at my direction and personally dictated by me. I have reviewed the chart and agree that the record accurately reflects my personal performance of the history, physical exam, medical decision making, and the department course for this patient. I have also personally directed, reviewed, and agree with the discharge instructions and disposition. Disposition/Present on Arrival - Present on Arrival Any Indicators Present on Arrival: No History of DVT/PE: No History of Uncontrolled Diabetes: No Urinary Catheter: No History of Decub. Ulcer: No History Surgical Site Infection Following: None - Disposition Have Diagnosis and Disposition been Completed?: Yes Diagnosis: Urinary tract infection, Altered mental status Disposition: HOSPITALIZED Disposition Time: 14:28 Patient Plan: Admission Patient Problems: Current Active Problems Problem Status Onset Altered mental status Acute Urinary tract infection Acute Condition: FAIR
--- NOTE | 2019-02-01 13:03 | RAD ---
Date of service: 02/01/2019 HISTORY: pes COMPARISON: 11/04/2018 TECHNIQUE: 1 view obtained. FINDINGS: LUNGS: No active pulmonary disease. PLEURA: No significant pleural effusion identified, no pneumothorax apparent. CARDIOVASCULAR: No aortic atherosclerotic calcification present. Aortic tortuosity Mild cardiomegaly no pulmonary vascular congestion. OSSEOUS STRUCTURES: No significant abnormalities. VISUALIZED UPPER ABDOMEN: Normal. OTHER FINDINGS: None. IMPRESSION: No active disease.
[2019-02-01 13:13] LABS: BASO # 0.03 {null, K/mm3} (0.0-2.0); BASO % 0.5 % (0.0-3.0); EOS # 0.1 (0.0-0.7); EOS % 2.3 % (1.5-5.0); HEMOGLOBIN 13.8 g/dL (14.0-18.0); LYMPH # 0.6 (1.2-3.4); LYMPH % 9.9 % (22.0-35.0); MEAN CELL VOLUME 92.1 fl (80.0-105.0); MEAN CORPUSCULAR HEMOGLOBIN 30.3 pg (25.0-35.0); MEAN CORPUSCULAR HGB CONC 32.9 g/dl (31.0-37.0); MEAN PLATELET VOLUME 10.1 fl (7.0-11.0); MONO # 0.6 (0.1-0.6); MONO % 10.8 % (1.0-6.0); RBC 4.56 {null, 10^6/uL} (3.5-6.1); WHITE BLOOD COUNT 5.6 {null, 10^3/uL} (4.5-11.0)
[2019-02-01 13:14] LABS: URINE BILIRUBIN NEGATIVE (NEGATIVE); URINE BLOOD TRACE-INTACT (NEGATIVE); URINE GLUCOSE (UA) NEGATIVE (NEGATIVE); URINE LEUKOCYTE ESTERASE LARGE Leu/uL (NEGATIVE); URINE PROTEIN 30 mg/dL (<30 mg/dL); URINE UROBILINOGEN 0.2 E.U./dL (<1 E.U./dL)
[2019-02-01 13:16] LABS: URINE APPEARANCE TURBID (CLEAR); URINE COLOR YELLOW (YELLOW)
[2019-02-01 13:27] LABS: ACETAMINOPHEN < 10.0 ug/ml (10.0-20.0); SALICYLATE < 1 mg/dL (2.0-20.0)
[2019-02-01 13:28] LABS: ALB/GLOB RATIO 1.2 (1.1-1.8); ALBUMIN 3.8 g/dL (3.0-4.8); CALCIUM 9.4 mg/dL (8.4-10.5)
[2019-02-01 13:40] LABS: BARBITURATES, UR NEGATIVE (NEGATIVE)
[2019-02-01 13:41] LABS: BENZODIAZEPINES, UR NEGATIVE (NEGATIVE); OPIATES, UR NEGATIVE (NEGATIVE); PHENCYCLIDINE, UR NEGATIVE (NEGATIVE)
[2019-02-01 13:52] LABS: URINE RBC 15 - 20 /hpf (0-2); URINE WBC TNTC /hpf (0-6)
[2019-02-01 13:53] LABS: URINE AMORPHOUS SEDIMENT FEW /hpf; URINE BACTERIA MANY /hpf
[2019-02-01] MEDS ORDERED: Ciprofloxacin 400mg/200ml D5W 400 MG/200 ML BAG IV STA (13:54)
--- NOTE | 2019-02-01 15:20 | CP.PCM.HP ---
<Nelli Rudd - Last Filed: 02/01/19 16:37> History of Present Illness - History of Present Illness History of Present Illness: Please note H&P as per daughter at bedside as patient is a poor historian 88yo Guinean speaking male PMHx Afib on coumadin, prostate ca 2002, CAD s/p stents, end stage dementia, arthritis presents to the ED after being sent by his psychiatrist (Dr. Maxwell) who requests a psych evaluation and and admission to the hospital for agitation and generalized weakness. As per daughter, patient lives at home alone after his ex moved out because he was being aggressive. Patient attends adult daycare 3 times a week, and the rest of the week he is taken care of by his daughter. Patient's daughter has noticed that over the past 2 weeks he has become increasingly agitated and combative and even aggressive at times towards her. He has also had decreased PO intake and unsteady gait. Patient is ao x 2 to self and [address] and is able to recognize his daughter. He denied any pain. Patient's daughter reported that he did not complain of any f ever, chills, headache, chest pain, SOB, abd pain, nausea, vomiting, bowel/bladder complaints, pain/swelling in his legs b/l. PMHx: Afib on coumadin, prostate ca 2002, CAD s/p stents, end stage dementia, arthritis Meds: pls see chart ALL: PCN SocHx: admits to tobacco use, denies EtOH FamHx: denies PMD: Dr. Lopez Psychiatrist: Dr. Maxwell Present on Admission - Present on Admission Any Indicators Present on Admission: No Review of Systems - Review of Systems Systems not reviewed;Unavailable: Dementia Past Patient History - Infectious Disease Hx of Infectious Diseases: None - Past Social History Smoking Status: Former Smoker - CARDIAC Hx Cardia Arrhythmia: Yes (a fib) - PULMONARY Hx Respiratory Disorders: No - NEUROLOGICAL Hx Alzheimer's Disease: Yes Hx Dementia: Yes Hx Transient Ischemic Attacks (TIA): Yes - HEENT Hx HEENT Problems: No - RENAL Hx Chronic Kidney Disease: No - ENDOCRINE/METABOLIC Hx Endocrine Disorders: No - HEMATOLOGICAL/ONCOLOGICAL Hx Blood Disorders: No - INTEGUMENTARY Hx Dermatological Problems: Yes Other/Comment: multiple brown moles to abd chest and back, multiple skin discoloration ble - MUSCULOSKELETAL/RHEUMATOLOGICAL Hx Unsteady Gait: Yes (cane) - GASTROINTESTINAL Hx Gastrointestinal Disorders: Yes - GENITOURINARY/GYNECOLOGICAL Hx Genitourinary Disorders: No Hx Reproductive Disorders: No - PSYCHIATRIC Hx Anxiety: No Hx Substance Use: No - SURGICAL HISTORY Hx Surgeries: (SPHINCTERECTOMY,STONE EXTRACTION FOR CBD.) - ANESTHESIA Hx Anesthesia: Yes Hx Anesthesia Reactions: No Hx Malignant Hyperthermia: No Meds Allergies/Adverse Reactions: Allergies Allergy/AdvReac Type Severity Reaction Status Date / Time Penicillins Allergy ANAPHYLAXIS Verified 11/05/18 19:57 Physical Exam - Constitutional Appears: Non-toxic, No Acute Distress - Head Exam Head Exam: ATRAUMATIC, NORMAL INSPECTION, NORMOCEPHALIC - Eye Exam Eye Exam: EOMI, Normal appearance. absent: Conjunctival injection, Scleral icterus - ENT Exam ENT Exam: Mucous Membranes Dry - Neck Exam Neck exam: Positive for: Full Rom, Normal Inspection - Respiratory Exam Respiratory Exam: Clear to Auscultation Bilateral, NORMAL BREATHING PATTERN. absent: Rales, Rhonchi, Wheezes - Cardiovascular Exam Cardiovascular Exam: Irregular Rhythm, +S1, +S2. absent: Systolic Murmur - GI/Abdominal Exam GI & Abdominal Exam: Normal Bowel Sounds, Soft. absent: Firm, Guarding, Rigid, Tenderness - Extremities Exam Extremities exam: Positive for: normal inspection, pedal pulses present. Negative for: pedal edema, tenderness - Neurological Exam Neurological exam: Alert Additional comments: ao x 2 - Psychiatric Exam Psychiatric exam: Normal Affect, Normal Mood - Skin Skin Exam: Dry, Intact, Normal Color, Warm Results - Vital Signs Recent Vital Signs: Last Vital Signs Temp 97.5 F L 02/01/19 12:23 Pulse 60 02/01/19 14:40 Resp 19 02/01/19 14:40 BP 110/63 02/01/19 14:40 Pulse Ox 95 02/01/19 14:40 - Labs Result Diagrams: 02/01/19 13:00 02/01/19 13:00 Labs: Laboratory Results - last 24 hr 02/01/19 02/01/19 02/01/19 13:00 13:00 13:00 WBC 5.6 RBC 4.56 Hgb 13.8 L Hct 42.0 MCV 92.1 MCH 30.3 MCHC 32.9 RDW 14.0 Plt Count 155 MPV 10.1 Neut % (Auto) 76.5 H Lymph % (Auto) 9.9 L [place] % (Auto) 10.8 H Eos % (Auto) 2.3 Baso % (Auto) 0.5 Lymph # (Auto) 0.6 L [place] # (Auto) 0.6 Eos # (Auto) 0.1 Baso # (Auto) 0.03 Absolute Neuts (auto) 4.30 Sodium 143 Potassium 3.4 L Chloride 102 Carbon Dioxide 30 Anion Gap 15 BUN 42 H Creatinine 1.8 H Est GFR ( Amer) 44 Est GFR (Non-Af Amer) 36 Random Glucose 119 H Calcium 9.4 Magnesium 2.1 Total Bilirubin 0.7 AST 24 ALT 9 Alkaline Phosphatase 78 Total Creatine Kinase 50 Total Protein 6.9 Albumin 3.8 Globulin 3.1 Albumin/Globulin Ratio 1.2 TSH 3rd Generation Urine Color Yellow Urine Appearance Turbid Urine pH 7.0 Ur Specific [place] 1.010 Urine Protein 30 H Urine Glucose (UA) Negative Urine Ketones Trace H Urine Blood Trace-intact H Urine Nitrate Negative Urine Bilirubin Negative Urine Urobilinogen 0.2 Ur Leukocyte Esterase Large H Urine RBC 15 - 20 H Urine WBC Tntc H Amorphous Sediment Few Urine Bacteria Many Urine Other Uyeast Salicylates Urine Opiates Screen Urine Methadone Screen Acetaminophen Ur Barbiturates Screen Ur Phencyclidine Scrn Ur Amphetamines Screen U Benzodiazepines Scrn U Oth Cocaine Metabols U Cannabinoids Screen Alcohol, Quantitative 02/01/19 02/01/19 02/01/19 13:00 13:00 13:00 WBC RBC Hgb Hct MCV MCH MCHC RDW Plt Count MPV Neut % (Auto) Lymph % (Auto) [place] % (Auto) Eos % (Auto) Baso % (Auto) Lymph # (Auto) [place] # (Auto) Eos # (Auto) Baso # (Auto) Absolute Neuts (auto) Sodium Potassium Chloride Carbon Dioxide Anion Gap BUN Creatinine Est GFR ( Amer) Est GFR (Non-Af Amer) Random Glucose Calcium Magnesium Total Bilirubin AST ALT Alkaline Phosphatase Total Creatine Kinase Total Protein Albumin Globulin Albumin/Globulin Ratio TSH 3rd Generation 1.18 Urine Color Urine Appearance Urine pH Ur Specific [place] Urine Protein Urine Glucose (UA) Urine Ketones Urine Blood Urine Nitrate Urine Bilirubin Urine Urobilinogen Ur Leukocyte Esterase Urine RBC Urine WBC Amorphous Sediment Urine Bacteria Urine Other Salicylates < 1 L Urine Opiates Screen Negative Urine Methadone Screen Negative Acetaminophen < 10.0 L Ur Barbiturates Screen Negative Ur Phencyclidine Scrn Negative Ur Amphetamines Screen Negative U Benzodiazepines Scrn Negative U Oth Cocaine Metabols Negative U Cannabinoids Screen Negative Alcohol, Quantitative < 10 Assessment & Plan - Assessment and Plan (Free Text) Assessment: 88yo Guinean speaking male presents to the ED after being sent by his psychiatrist (Dr. Maxwell) who requests a psych evaluation and and admission to the hospital for agitation and generalized weakness. Patient admitted to med/surg for further evaluation. - AMS and agitation 2/2 UTI vs end stage dementia vs polypharmacy - Dehydration - Decreased PO intake - Unsteady gait - Deconditioning - Afib on coumadin - CAD s/p stents - Hx prostate ca 2002 - Arthritis Plan: Patient's blood work, vitals, and imaging noted in chart. In light of AMS and unsteady gait and patient's history on coumadin, will order a stat head CT to r/o acute etiology. Patient's U/A suggestive of UTI; pending urine culture. Patient received 1 dose of Cipro in the ED. Will continue Cipro on renally adjusted dose of 400mg daily. Psych consult in place for further evaluation. As per daughter patient had decreased PO intake and blood work showed slight elevation in creatinine; will start patient on gentle hydration with NS@50. Continue home multivitamin. Patient has an elevated INR; will hold coumadin at this time. Continue home meds for dementia. PT/OT ordered for unsteady gait and deconditioning. Patient on HHD. Will have social work on board for discharge planning when medically optimized. Discussed with Dr. Maru Rudd PGY3 <Perlita Mahoney - Last Filed: 02/01/19 17:43> Results - Vital Signs Recent Vital Signs: Last Vital Signs Temp 97.5 F L 02/01/19 12:23 Pulse 60 02/01/19 14:40 Resp 19 02/01/19 14:40 BP 110/63 02/01/19 14:40 Pulse Ox 95 02/01/19 14:40 - Labs Result Diagrams: 02/01/19 13:00 02/01/19 13:00 Labs: Laboratory Results - last 24 hr 02/01/19 02/01/19 02/01/19 13:00 13:00 13:00 WBC 5.6 RBC 4.56 Hgb 13.8 L Hct 42.0 MCV 92.1 MCH 30.3 MCHC 32.9 RDW 14.0 Plt Count 155 MPV 10.1 Neut % (Auto) 76.5 H Lymph % (Auto) 9.9 L [place] % (Auto) 10.8 H Eos % (Auto) 2.3 Baso % (Auto) 0.5 Lymph # (Auto) 0.6 L [place] # (Auto) 0.6 Eos # (Auto) 0.1 Baso # (Auto) 0.03 Absolute Neuts (auto) 4.30 PT INR APTT Sodium 143 Potassium 3.4 L Chloride 102 Carbon Dioxide 30 Anion Gap 15 BUN 42 H Creatinine 1.8 H Est GFR ( Amer) 44 Est GFR (Non-Af Amer) 36 Random Glucose 119 H Calcium 9.4 Magnesium 2.1 Total Bilirubin 0.7 AST 24 ALT 9 Alkaline Phosphatase 78 Total Creatine Kinase 50 Total Protein 6.9 Albumin 3.8 Globulin 3.1 Albumin/Globulin Ratio 1.2 TSH 3rd Generation Urine Color Yellow Urine Appearance Turbid Urine pH 7.0 Ur Specific [place] 1.010 Urine Protein 30 H Urine Glucose (UA) Negative Urine Ketones Trace H Urine Blood Trace-intact H Urine Nitrate Negative Urine Bilirubin Negative Urine Urobilinogen 0.2 Ur Leukocyte Esterase Large H Urine RBC 15 - 20 H Urine WBC Tntc H Amorphous Sediment Few Urine Bacteria Many Urine Other Uyeast Salicylates Urine Opiates Screen Urine Methadone Screen Acetaminophen Ur Barbiturates Screen Ur Phencyclidine Scrn Ur Amphetamines Screen U Benzodiazepines Scrn U Oth Cocaine Metabols U Cannabinoids Screen Alcohol, Quantitative 02/01/19 02/01/19 02/01/19 13:00 13:00 13:00 WBC RBC Hgb Hct MCV MCH MCHC RDW Plt Count MPV Neut % (Auto) Lymph % (Auto) [place] % (Auto) Eos % (Auto) Baso % (Auto) Lymph # (Auto) [place] # (Auto) Eos # (Auto) Baso # (Auto) Absolute Neuts (auto) PT INR APTT Sodium Potassium Chloride Carbon Dioxide Anion Gap BUN Creatinine Est GFR ( Amer) Est GFR (Non-Af Amer) Random Glucose Calcium Magnesium Total Bilirubin AST ALT Alkaline Phosphatase Total Creatine Kinase Total Protein Albumin Globulin Albumin/Globulin Ratio TSH 3rd Generation 1.18 Urine Color Urine Appearance Urine pH Ur Specific [place] Urine Protein Urine Glucose (UA) Urine Ketones Urine Blood Urine Nitrate Urine Bilirubin Urine Urobilinogen Ur Leukocyte Esterase Urine RBC Urine WBC Amorphous Sediment Urine Bacteria Urine Other Salicylates < 1 L Urine Opiates Screen Negative Urine Methadone Screen Negative Acetaminophen < 10.0 L Ur Barbiturates Screen Negative Ur Phencyclidine Scrn Negative Ur Amphetamines Screen Negative U Benzodiazepines Scrn Negative U Oth Cocaine Metabols Negative U Cannabinoids Screen Negative Alcohol, Quantitative < 10 02/01/19 14:00 WBC RBC Hgb Hct MCV MCH MCHC RDW Plt Count MPV Neut % (Auto) Lymph % (Auto) [place] % (Auto) Eos % (Auto) Baso % (Auto) Lymph # (Auto) [place] # (Auto) Eos # (Auto) Baso # (Auto) Absolute Neuts (auto) PT 34.3 H INR 3.09 APTT 33.9 Sodium Potassium Chloride Carbon Dioxide Anion Gap BUN Creatinine Est GFR ( Amer) Est GFR (Non-Af Amer) Random Glucose Calcium Magnesium Total Bilirubin AST ALT Alkaline Phosphatase Total Creatine Kinase Total Protein Albumin Globulin Albumin/Globulin Ratio TSH 3rd Generation Urine Color Urine Appearance Urine pH Ur Specific [place] Urine Protein Urine Glucose (UA) Urine Ketones Urine Blood Urine Nitrate Urine Bilirubin Urine Urobilinogen Ur Leukocyte Esterase Urine RBC Urine WBC Amorphous Sediment Urine Bacteria Urine Other Salicylates Urine Opiates Screen Urine Methadone Screen Acetaminophen Ur Barbiturates Screen Ur Phencyclidine Scrn Ur Amphetamines Screen U Benzodiazepines Scrn U Oth Cocaine Metabols U Cannabinoids Screen Alcohol, Quantitative Attending/Attestation - Attestation I have personally seen and examined this patient.: Yes I have fully participated in the care of the patient.: Yes I have reviewed all pertinent clinical information: Yes Notes (Text): 02/01/19 17:36 88 year old male with past medical history of dementia, afib and CHF who was bro ught in by daughter for evaluation of dementia, agitation and increased falls at home. Found to have UTI and OMER. Started on gentle iv fluids and antibiotics. Will hold lasix for now. INR is 3.09; coumadin will also be held tonight. Obtain CT head and psychiatry evaluation. PT evaluation requested as well. Resume home medications for dementia. Will need to confirm home medications with pharmacy and daughter but hold lasix and coumadin for now as above. Daughter is at bedside and questions were answered. Perlita Mahoney MD Hospitalist.
--- NOTE | 2019-02-01 15:27 | CARD ---
APPROVED REPORT Date of service: 02/01/2019 EKG Measurement Heart [id number] <Conclusion> Atrial fibrillation with aberrantly conducted complexes Left anterior fascicular block Minimal voltage criteria for LVH, may be normal variant Nonspecific ST and T wave abnormality Probably Non Specific. Abnormal ECG
[2019-02-01] MEDS ORDERED: Potassium Chloride 20 mEq ER Tab PO STA (15:42)
[2019-02-01 15:53] LABS: INR 3.09; PARTIAL THROMBOPLASTIN TIME 33.9 Seconds (26.9-38.3); PROTHROMBIN TIME 34.3 SECONDS (9.4-12.5)
[2019-02-01] MEDS ORDERED: Sodium Chloride 0.9% 1,000 ML IV SCH (16:15)
[2019-02-01] MEDS ORDERED: Ciprofloxacin 400mg/200ml D5W 400 MG/200 ML BAG IVPB SCH (22:00)
[2019-02-01] MEDS ORDERED: Pneumococcal 23-Valent Vaccine IM ONE (22:02)
[2019-02-02 07:59] LABS: BASO # 0.03 {null, K/mm3} (0.0-2.0); BASO % 0.6 % (0.0-3.0); EOS # 0.2 (0.0-0.7); HEMOGLOBIN 14.4 g/dL (14.0-18.0); LYMPH # 1.2 (1.2-3.4); LYMPH % 23.5 % (22.0-35.0); MEAN CELL VOLUME 92.4 fl (80.0-105.0); MEAN CORPUSCULAR HEMOGLOBIN 30.3 pg (25.0-35.0); MEAN CORPUSCULAR HGB CONC 32.8 g/dl (31.0-37.0); MEAN PLATELET VOLUME 10.6 fl (7.0-11.0); MONO # 0.5 (0.1-0.6); MONO % 8.9 % (1.0-6.0); RBC 4.75 {null, 10^6/uL} (3.5-6.1); RED CELL DISTRIBUTION WIDTH 13.8 % (11.5-14.5); WHITE BLOOD COUNT 5.3 {null, 10^3/uL} (4.5-11.0)
[2019-02-02 08:27] LABS: ALB/GLOB RATIO 1.2 (1.1-1.8); CALCIUM 9.5 mg/dL (8.4-10.5)
--- NOTE | 2019-02-02 09:31 | CT ---
Date of service: 02/02/2019 PROCEDURE: CT HEAD WITHOUT CONTRAST. HISTORY: ams and hx of fall COMPARISON: CT head dated 08/11/2017 TECHNIQUE: Axial computed tomography images were obtained through the head/brain without intravenous contrast. Radiation dose: Total exam DLP = 954.06 mGy-cm. This CT exam was performed using one or more of the following dose reduction techniques: Automated exposure control, adjustment of the mA and/or kV according to patient size, and/or use of iterative reconstruction technique. FINDINGS: HEMORRHAGE: No intracranial hemorrhage. BRAIN: No mass effect or edema. Atrophy. Chronic microvascular ischemic changes. Encephalomalacia re-identified in the bilateral frontal, parietal, right temporal and bilateral cerebellar regions. VENTRICLES: Prominent. No hydrocephalus. CALVARIUM: Unremarkable. PARANASAL SINUSES: Unremarkable as visualized. No significant inflammatory changes. MASTOID AIR CELLS: Unremarkable as visualized. No inflammatory changes. OTHER FINDINGS: None. IMPRESSION: No acute intracranial pathology. Age-related changes. 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 No significant interval change.
[2019-02-02] MEDS: Ciprofloxacin 400mg/200ml D5W 400 MG/200 ML BAG IVPB SCH (10:46)
[2019-02-02] MEDS: Multivitamin Therapeutic Tab PO SCH (10:47)
[2019-02-02] MEDS: Sodium Chloride 0.9% 1,000 ML IV SCH (13:33)
--- NOTE | 2019-02-02 19:05 | CON ---
DATE: 02/02/2019 HISTORY OF PRESENT ILLNESS: The patient is an 88-year-old [place] speaking male who has a psychiatric history of depression and anxiety as well as dementia with behavioral disturbance who Psychiatry has followed up with in the past on the medical floor for episodes of behavioral disturbance, which includes aggression, high agitation leading to Code Duncan's and involvement. This was generally associated with delirium. The patient was recently referred by his psychiatrist, Dr. Maxwell who requests statutory hospitalization due to the patient's increased generalized weakness and agitation. The patient has again become aggressive, agitated, combative and apparently his ex- actually had to move out due to the aggression. His orientation is poor and notes from the interview indicate the patient has had episodes of confusion, agitation, yelling, pulling on his IV lines and with difficulty redirecting. I met with the patient at bedside. The patient asked for translation for communication and the patient is fairly cooperative with my requests, although he is not extremely interactive or engaged. He is aware that he is at a hospital. He does appear to be comprehending me when I indicate the current hospital, current reason for his hospitalization, and month and year. However, I cannot determine whether he will retain this information. The patient denies any current pain, does not appear to be in any distress. He is not vocalizing any delusions, does appear guarded and affect is a little bit flat, mildly irritable, but in control at this time; however, this can change as his behavior has been unpredictable in the recent past. His insight and judgment are considered to be poor at this time due to his diagnosis of dementia and likely delirium. Regarding his medications, the patient is on Cipro, Aricept, Namenda and multivitamins. PAST PSYCHIATRIC HISTORY: The patient has been followed in the past by Dr. Anderson as a behavioral consultant for agitated behavior. The patient has taken Paxil in the past as well as low-dose Risperdal and Ativan. Aggressive behaviors have resolved in the past associated with resolving delirium and apparently he has also been in treatment with a psychiatrist, Dr. Maxwell as an outpatient. SOCIAL HISTORY: This provider reviewed the entire notes, which indicate that patient has been twice. He was born in [place], came to the [place] 1998. His second used to live with him, but she moved out due to his aggression and agitation. He does not appear to have any history of alcohol or substance abuse. 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 He has a daughter living in the [place] and a son in [place]. IMPRESSION: Likely delirium with behavioral disturbance in the background of worsened dementia, which appears to have been diagnosed 7 years ago. RECOMMENDATIONS: At this time, we will recommend a small dose of Risperdal 0.25 mg that he has taken in the past and had appeared to have done well with this dose. Psychiatry will continue to follow up peripherally. You could re-consult dmitry. Twan Gillis MD
--- NOTE | 2019-02-02 23:51 | CP.PCM.PN ---
Subjective - Date & Time of Evaluation Date of Evaluation: 02/02/19 Time of Evaluation: 12:30 - Subjective Subjective: Patient tolerating diet; denies any issues urinating; denies any complaints; Objective - Vital Signs/Intake and Output Vital Signs (last 24 hours): Temp Pulse Resp BP Pulse Ox 97.6 F 67 18 118/82 92 L 02/02/19 22:00 02/02/19 22:00 02/02/19 22:00 02/02/19 22:00 02/02/19 22:00 - Medications Medications: Current Medications Donepezil HCl (Aricept) 10 mg PO HS [facility] Last Admin: 02/02/19 21:07 Dose: 10 mg Ciprofloxacin (Cipro 400mg/200ml Dsw) 400 mg in 200 mls @ 133.3 mls/hr IVPB DAILY [facility]; Protocol Stop: 02/03/19 11:31 Last Admin: 02/02/19 10:46 Dose: 133.3 mls/hr Sodium Chloride (Sodium Chloride 0.9%) 1,000 mls @ 60 mls/hr IV .[id number] [facility] Last Admin: 02/02/19 13:33 Dose: 60 mls/hr Memantine (Namenda) 10 mg PO HS [facility] Last Admin: 02/02/19 21:08 Dose: 10 mg Multivitamins (Thera Tab) 1 tab PO DAILY [facility] Last Admin: 02/02/19 10:47 Dose: 1 tab Risperidone (Risperdal Tab) 0.25 mg PO BID [facility]; Protocol Last Admin: 02/02/19 17:42 Dose: 0.25 mg Ziprasidone (Geodon Inj) 5 mg IM Q6 PRN; Protocol PRN Reason: Agitation - Labs Labs: 02/02/19 07:00 02/02/19 07:00 PT 34.3 SECONDS (9.4-12.5) H 02/01/19 14:00 INR 3.09 02/01/19 14:00 APTT 33.9 Seconds (26.9-38.3) 02/01/19 14:00 - Constitutional Appears: Non-toxic, No Acute Distress - Eye Exam Eye Exam: Normal appearance - Respiratory Exam Respiratory Exam: Clear to Ausculation Bilateral. absent: Respiratory Distress - Cardiovascular Exam Cardiovascular Exam: RRR, +S1, +S2. absent: Gallop, Rubs - GI/Abdominal Exam GI & Abdominal Exam: Soft. absent: Distended, Tenderness - Exam Exam: absent: Bladder Distension - Extremities Exam Additional comments: no leg edema; - Neurological Exam Neurological Exam: Alert, Awake - Psychiatric Exam Psychiatric exam: Normal Mood. absent: Agitated - Skin Skin Exam: Warm. absent: Cyanosis Assessment and Plan (1) Altered mental status Assessment & Plan: Reportedly with aggressive behavior and referred by outpatient psychiatrist for admission; inpatient psych eval appreciated, feels that there may be element of delirium superimposed on worsening dementia; risperdal started, will continue same and re-consult psych as needed; Status: Acute (2) Urinary tract infection Assessment & Plan: Possibly contributing to delirium; patient with history of prostate CA but no overt urinary retention on exam; will obtain bladder US after giving some volume repletion; -f/u urine culture; -continue cipro 400 mg daily (dosed for CrCl < 30, will increase dose as renal function improves with IVF); Status: Acute (3) Acute kidney injury Assessment & Plan: Likely pre-renal etiology; starting IVF w/ NS at 60 cc/hr (gently due to to CHF history); Status: Acute (4) Atrial fibrillation Assessment & Plan: On coumadin with supratherapeutic INR yesterday; HR controlled despite being off rate control med; -holding coumadin dose today, repeating INR in am; Status: Chronic (5) COPD (chronic obstructive pulmonary disease) Assessment & Plan: Breathing well, will keep on prn atrovent; Status: Chronic (6) Congestive heart failure Assessment & Plan: Systolic dysfunction; currently euvolemic (possibly volume depleted) on exam; no need for diuretics; Status: Chronic (7) Dementia Assessment & Plan: Continue current meds; Status: Acute (8) HTN (hypertension) Assessment & Plan: BP on lower end of normal, holding cardizem; Status: Acute
[2019-02-03] MEDS: Sodium Chloride 0.9% 1,000 ML IV SCH (05:28)
[2019-02-03] MEDS ORDERED: Ipratropium 0.02% Inhal Soln (0.5 mg/2.5 ml) UD IH PRN (07:04)
[2019-02-03 07:38] LABS: BASO # 0.02 {null, K/mm3} (0.0-2.0); BASO % 0.4 % (0.0-3.0); EOS # 0.2 (0.0-0.7); EOS % 4.6 % (1.5-5.0); LYMPH # 0.8 (1.2-3.4); MEAN CELL VOLUME 92.7 fl (80.0-105.0); MEAN CORPUSCULAR HEMOGLOBIN 29.7 pg (25.0-35.0); MEAN CORPUSCULAR HGB CONC 32.1 g/dl (31.0-37.0); MEAN PLATELET VOLUME 9.9 fl (7.0-11.0); MONO # 0.4 (0.1-0.6); MONO % 8.7 % (1.0-6.0); RBC 4.37 {null, 10^6/uL} (3.5-6.1); WHITE BLOOD COUNT 4.8 {null, 10^3/uL} (4.5-11.0)
[2019-02-03 07:43] LABS: INR 1.88; PROTHROMBIN TIME 21.2 SECONDS (9.4-12.5)
[2019-02-03 08:08] LABS: ALB/GLOB RATIO 1.2 (1.1-1.8); ALBUMIN 3.4 g/dL (3.0-4.8); ALT/SGPT 14 U/L (7-56); AST/SGOT 26 U/L (17-59); BLOOD UREA NITROGEN 28 mg/dL (7-21); CALCIUM 8.8 mg/dL (8.4-10.5); GFR NON-AFRICAN AMERICAN 57
[2019-02-03] MEDS: Ciprofloxacin 400mg/200ml D5W 400 MG/200 ML BAG IVPB SCH (10:28)
[2019-02-03] MEDS: Potassium Chloride 40 mEq/30 ml LIQ UD PO SCH ×2 (10:28→12:00)
[2019-02-03] MEDS: Multivitamin Therapeutic Tab PO SCH (10:29)
[2019-02-03] MEDS ORDERED: Ciprofloxacin 400mg/200ml D5W 400 MG/200 ML BAG IVPB SCH (22:00)
--- NOTE | 2019-02-03 23:47 | CP.PCM.PN ---
Subjective - Date & Time of Evaluation Date of Evaluation: 02/03/19 Time of Evaluation: 23:00 - Subjective Subjective: 88 yo M w/ pmh of htn, dm, CAD s/p stent, CHF w/ systolic dysfunction, afib on coumadin, COPD, and dementia, admitted with UTI and agitated behavior; Patient reportedly combative at times; tolerating diet well; no BM reported per nursing staff; got OOB to chair with assistance; denies any pain; Objective - Vital Signs/Intake and Output Vital Signs (last 24 hours): Temp Pulse Resp BP Pulse Ox 98.7 F 95 H 20 118/64 95 02/03/19 22:00 02/03/19 22:00 02/03/19 22:00 02/03/19 22:00 02/03/19 22:00 Intake and Output: 02/03/19 02/04/19 18:59 06:59 Intake Total 120 Balance 120 - Medications Medications: Current Medications Donepezil HCl (Aricept) 10 mg PO HS [facility] Last Admin: 02/03/19 22:22 Dose: 10 mg Ipratropium [place] (Atrovent) 0.5 mg IH [id number] PRN PRN Reason: Shortness of Breath Memantine (Namenda) 10 mg PO [facility] Last Admin: 02/03/19 22:22 Dose: 10 mg Multivitamins (Thera Tab) 1 tab PO DAILY [facility] Last Admin: 02/03/19 10:29 Dose: 1 tab Risperidone (Risperdal Tab) 0.25 mg PO BID [facility]; Protocol Last Admin: 02/03/19 17:27 Dose: 0.25 mg Ziprasidone (Geodon Inj) 5 mg IM Q6 PRN; Protocol PRN Reason: Agitation - Labs Labs: 02/03/19 07:10 02/03/19 07:10 PT 21.2 SECONDS (9.4-12.5) H 02/03/19 07:10 INR 1.88 02/03/19 07:10 APTT 33.9 Seconds (26.9-38.3) 02/01/19 14:00 - Constitutional Appears: Non-toxic, No Acute Distress - Eye Exam Eye Exam: Normal appearance - Respiratory Exam Respiratory Exam: Clear to Ausculation Bilateral. absent: Respiratory Distress - Cardiovascular Exam Cardiovascular Exam: Irregular Rhythm, +S1, +S2 - GI/Abdominal Exam GI & Abdominal Exam: Soft. absent: Distended, Tenderness - Exam Exam: absent: Bladder Distension - Extremities Exam Additional comments: no leg edema; - Neurological Exam Neurological Exam: Alert, Awake - Psychiatric Exam Psychiatric exam: Normal Mood. absent: Agitated - Skin Skin Exam: Warm. absent: Cyanosis Assessment and Plan (1) Altered mental status Assessment & Plan: Delirium superimposed on dementia, possibly due to UTI; has been calm during encounters with him; will continue with home meds for dementia as well as risperdal and geodon prn added by psych; will discuss with family and case management regarding placement; Status: Acute (2) Urinary tract infection Assessment & Plan: On cipro; currently doesn't appear symptomatic; lab called this evening and saying culture speciating as Streptococcus but still awaiting sensitivities; will keep on cipro 400 mg q12h for now; Status: Acute (3) Acute kidney injury Assessment & Plan: Pre-renal etiology, resolving with IVF; stopped IVF this morning due to underlying CHF; will monitor; Status: Acute (4) Atrial fibrillation Assessment & Plan: INR below goal, will restart coumading at 2 mg this evening; off rate control meds as BP well controlled (was on cardizem CD 180 mg); Status: Chronic (5) COPD (chronic obstructive pulmonary disease) Assessment & Plan: Asymptomatic, continue atrovent prn; Status: Chronic (6) Congestive heart failure Assessment & Plan: Euvolemic on exam, diuretics being held; Status: Chronic (7) Dementia Status: Acute (8) HTN (hypertension) Assessment & Plan: Normotensive off BP meds (cardizem and lasix), monitor; Status: Acute
[2019-02-04 07:50] LABS: BASO # 0.02 {null, K/mm3} (0.0-2.0); BASO % 0.4 % (0.0-3.0); EOS # 0.2 (0.0-0.7); HEMOGLOBIN 12.5 g/dL (14.0-18.0); LYMPH # 0.6 (1.2-3.4); LYMPH % 11.4 % (22.0-35.0); MEAN CELL VOLUME 92.9 fl (80.0-105.0); MEAN CORPUSCULAR HEMOGLOBIN 29.6 pg (25.0-35.0); MEAN CORPUSCULAR HGB CONC 31.8 g/dl (31.0-37.0); MEAN PLATELET VOLUME 10.3 fl (7.0-11.0); MONO # 0.4 (0.1-0.6); MONO % 7.8 % (1.0-6.0); RBC 4.23 {null, 10^6/uL} (3.5-6.1); RED CELL DISTRIBUTION WIDTH 14.2 % (11.5-14.5); WHITE BLOOD COUNT 5.5 {null, 10^3/uL} (4.5-11.0)
[2019-02-04 07:55] LABS: INR 1.53; PROTHROMBIN TIME 17.3 SECONDS (9.4-12.5)
[2019-02-04 08:30] LABS: ALB/GLOB RATIO 1.1 (1.1-1.8); ALBUMIN 3.3 g/dL (3.0-4.8); ALT/SGPT 7 U/L (7-56); AST/SGOT 24 U/L (17-59); BLOOD UREA NITROGEN 25 mg/dL (7-21); CALCIUM 8.8 mg/dL (8.4-10.5); GFR NON-AFRICAN AMERICAN > 60
[2019-02-04] MEDS: Multivitamin Therapeutic Tab PO SCH (10:49)
--- NOTE | 2019-02-04 12:40 | CP.PCM.APN ---
Subjective - Date & Time of Evaluation Date of Evaluation: 02/04/19 Time of Evaluation: 09:30 - Subjective Subjective: Pt seen and examined at bedside. In no acute distress. Pt is aware that he is in the hospital, but does not know why he is here and what year it is. Pt states that he would like to go home. Objective - Vital Signs/Intake and Output Vital Signs (last 24 hours): Temp Pulse Resp BP Pulse Ox 97.7 F 53 L 19 125/75 93 L 02/04/19 06:00 02/04/19 06:00 02/04/19 06:00 02/04/19 06:00 02/04/19 06:00 Intake and Output: 02/04/19 02/04/19 06:59 18:59 Intake Total 240 780 Balance 240 780 - Medications Medications: Current Medications Donepezil HCl (Aricept) 10 mg PO HS [facility] Last Admin: 02/03/19 22:22 Dose: 10 mg Ipratropium [place] (Atrovent) 0.5 mg IH [id number] PRN PRN Reason: Shortness of Breath Linezolid (Zyvox) 600 mg PO BID [facility]; Protocol Stop: 02/11/19 10:31 Last Admin: 02/04/19 10:51 Dose: 600 mg Memantine (Namenda) 10 mg PO HS [facility] Last Admin: 02/03/19 22:22 Dose: 10 mg Multivitamins (Thera Tab) 1 tab PO DAILY [facility] Last Admin: 02/04/19 10:49 Dose: 1 tab Risperidone (Risperdal Tab) 0.25 mg PO BID [facility]; Protocol Last Admin: 02/04/19 10:49 Dose: 0.25 mg Warfarin Sodium (Coumadin) 4 mg PO 1800 [facility]; Protocol Ziprasidone (Geodon Inj) 5 mg IM Q6 PRN; Protocol PRN Reason: Agitation - Labs Labs: 02/04/19 07:30 02/04/19 07:30 PT 17.3 SECONDS (9.4-12.5) H 02/04/19 07:30 INR 1.53 02/04/19 07:30 APTT 33.9 Seconds (26.9-38.3) 02/01/19 14:00 - Constitutional Appears: No Acute Distress - Head Exam Head Exam: ATRAUMATIC - Respiratory Exam Respiratory Exam: Clear to Ausculation Bilateral - Cardiovascular Exam Cardiovascular Exam: +S1, +S2 - GI/Abdominal Exam GI & Abdominal Exam: Soft, Normal Bowel Sounds - Rectal Exam Rectal Exam: Deferred Assessment and Plan - Assessment and Plan (Free Text) Assessment: Pt is an 88 y.o. male with pmhx of prostate CA, afib, cardiac stent, and dementia who was brought in to ED by daughter as advised by psychiatrist for evaluation of aggressive behavior. His urine culture grew e. faecium. Discussed result w/ Dr. Lora and recommended Zyvox PO x 7days. Plan: Zyvox PO per ID recs Case d/w SW and CM for dc planning Meds per MAR Will continue to follow
--- NOTE | 2019-02-04 18:25 | CP.PCM.PN ---
Subjective - Date & Time of Evaluation Date of Evaluation: 02/04/19 Time of Evaluation: 10:30 - Subjective Subjective: Patient reportedly trying to pull out IV lines; otherwise, tolerating diet; denies any pain; Objective - Vital Signs/Intake and Output Vital Signs (last 24 hours): Temp Pulse Resp BP Pulse Ox 97.7 F 53 L 19 125/75 93 L 02/04/19 06:00 02/04/19 06:00 02/04/19 06:00 02/04/19 06:00 02/04/19 06:00 Intake and Output: 02/04/19 02/04/19 06:59 18:59 Intake Total 240 780 Balance 240 780 - Medications Medications: Current Medications Donepezil HCl (Aricept) 10 mg PO HS [facility] Last Admin: 02/03/19 22:22 Dose: 10 mg Ipratropium [place] (Atrovent) 0.5 mg IH [id number] PRN PRN Reason: Shortness of Breath Linezolid (Zyvox) 600 mg PO BID [facility]; Protocol Stop: 02/11/19 10:31 Last Admin: 02/04/19 17:19 Dose: 600 mg Memantine (Namenda) 10 mg PO HS [facility] Last Admin: 02/03/19 22:22 Dose: 10 mg Multivitamins (Thera Tab) 1 tab PO DAILY [facility] Last Admin: 02/04/19 10:49 Dose: 1 tab Risperidone (Risperdal Tab) 0.25 mg PO BID [facility]; Protocol Last Admin: 02/04/19 17:18 Dose: 0.25 mg Warfarin Sodium (Coumadin) 4 mg PO 1800 [facility]; Protocol Last Admin: 02/04/19 17:18 Dose: 4 mg Ziprasidone (Geodon Inj) 5 mg IM Q6 PRN; Protocol PRN Reason: Agitation - Labs Labs: 02/04/19 07:30 02/04/19 07:30 PT 17.3 SECONDS (9.4-12.5) H 02/04/19 07:30 INR 1.53 02/04/19 07:30 APTT 33.9 Seconds (26.9-38.3) 02/01/19 14:00 - Constitutional Appears: Non-toxic, No Acute Distress - Eye Exam Eye Exam: Normal appearance. absent: Scleral icterus - Respiratory Exam Respiratory Exam: Clear to Ausculation Bilateral. absent: Respiratory Distress - Cardiovascular Exam Cardiovascular Exam: Irregular Rhythm, +S1, +S2 - GI/Abdominal Exam GI & Abdominal Exam: Soft. absent: Distended, Tenderness - Exam Exam: absent: Bladder Distension - Extremities Exam Additional comments: no leg edema; - Neurological Exam Neurological Exam: Alert, Awake - Psychiatric Exam Psychiatric exam: Normal Mood. absent: Agitated - Skin Skin Exam: Warm. absent: Cyanosis Assessment and Plan (1) Altered mental status Assessment & Plan: Delirium at times superimposed on dementia; continue with risperdal and prn geodon per psych; Status: Acute (2) Urinary tract infection Assessment & Plan: ID consulted for Enterococcus sensitive to vanco and tygecycline; ID opting for PO linezolid given patient's intermittent agitation and concern for losing IV access; will continue for 7 days; Status: Acute (3) Acute kidney injury Assessment & Plan: Resolved, pre-renal etiology; IVF stopped 2 days ago, will monitor PO intake; Status: Acute (4) Atrial fibrillation Assessment & Plan: On coumadin, INR sub-therapeutic; increasing coumadin dose tonight to 4 mg (avoiding large dose increases in patient who was slightly supratherapeutic on 3 mg daily on dose); Status: Chronic (5) COPD (chronic obstructive pulmonary disease) Assessment & Plan: continue prn atrovent; Status: Chronic (6) Congestive heart failure Assessment & Plan: Euvolemic on exam; continuing to hold diuretics for now; Status: Chronic (7) Dementia Assessment & Plan: Continue aricept/namenda; Status: Acute (8) HTN (hypertension) Assessment & Plan: BP well controlled, continue current meds; Status: Chronic
--- NOTE | 2019-02-04 19:04 | CP.PCM.CON ---
History of Present Illness - History of Present Illness History of Present Illness: Infectious Disease Consultation: February 04, 2019 88 yo Citizen Of [place] speaking male with multiple medical issues that include depression, anxiety, delirium, combative behavior, A. Fib, Prostate CA, CAD, HTN, DM, and arthritis. History PCN allergy. The patient found with Enterococcus Faecium in urine. Case discussed with Nurse Practitioner. Zyvox started for treatment initially. Difficult IV access as the patient can have combative behavior and often removes his IV. Noted that the patient was on Cipro for antibiotic treatment earlier in this hospitalization. PMHx: depression, anxiety, delirium, combative behavior, A. Fib, Prostate CA, CAD, HTN, DM, and arthritis PSHx: stent placement Allergies: PCN Social Hx: No tobacco, EtOH, or illicit drug use Active Medications Donepezil HCl (Aricept) 10 mg PO HS [facility] Last Admin: 02/03/19 22:22 Dose: 10 mg Ipratropium [place] (Atrovent) 0.5 mg IH [id number] PRN PRN Reason: Shortness of Breath Linezolid (Zyvox) 600 mg PO BID [facility]; Protocol Stop: 02/11/19 10:31 Last Admin: 02/04/19 17:19 Dose: 600 mg Memantine (Namenda) 10 mg PO HS [facility] Last Admin: 02/03/19 22:22 Dose: 10 mg Multivitamins (Thera Tab) 1 tab PO DAILY [facility] Last Admin: 02/04/19 10:49 Dose: 1 tab Risperidone (Risperdal Tab) 0.25 mg PO BID [facility]; Protocol Last Admin: 02/04/19 17:18 Dose: 0.25 mg Warfarin Sodium (Coumadin) 4 mg PO 1800 [facility]; Protocol Last Admin: 02/04/19 17:18 Dose: 4 mg Ziprasidone (Geodon Inj) 5 mg IM Q6 PRN; Protocol PRN Reason: Agitation Family Hx: none given ROS: No fevers, chills, nausea, vomiting, diarrhea, headaches, dizziness, chest pain, abdominal pain, melena, hematuria, hematemesis, hematochezia, vision loss, hearing loss, loss of consciousness. Positive depression, anxiety Past Patient History - Infectious Disease Hx of Infectious Diseases: None - Past Social History Smoking Status: Former Smoker - CARDIAC Hx Cardiac Disorders: Yes (CAD) Hx Congestive Heart Failure: Yes Hx Hypercholesterolemia: Yes - PULMONARY Hx Chronic Obstructive Pulmonary Disease (COPD): Yes - NEUROLOGICAL Hx Neurological Disorder: Yes Hx Alzheimer's Disease: Yes Hx Dementia: Yes Hx Transient Ischemic Attacks (TIA): Yes - HEENT Hx HEENT Problems: Yes Hx Deafness: Yes (THREE AFFILIATED) - RENAL Hx Chronic Kidney Disease: No - ENDOCRINE/METABOLIC Hx Endocrine Disorders: No - HEMATOLOGICAL/ONCOLOGICAL Hx Blood Disorders: No - INTEGUMENTARY Hx Dermatological Problems: Yes Other/Comment: multiple brown moles to abd chest and back, multiple skin discoloration ble - MUSCULOSKELETAL/RHEUMATOLOGICAL Hx Musculoskeletal Disorders: Yes (LUMBAR RADICULOPATHY) Hx Falls: Yes (MULTIPLE FALLS) Hx Fractures: Yes (CLAVICULAR FX,COMPRESSION FX) - GASTROINTESTINAL Hx Gastrointestinal Disorders: Yes - GENITOURINARY/GYNECOLOGICAL Hx Genitourinary Disorders: No Hx Urinary Tract Infection: Yes - PSYCHIATRIC Hx Anxiety: No - SURGICAL HISTORY Hx Surgeries: (SPHINCTERECTOMY,STONE EXTRACTION FOR CBD.) Hx Coronary Stent: Yes - ANESTHESIA Hx Anesthesia: Yes Hx Anesthesia Reactions: No Hx Malignant Hyperthermia: No Meds Allergies/Adverse Reactions: Allergies Allergy/AdvReac Type Severity Reaction Status Date / Time Penicillins Allergy ANAPHYLAXIS Verified 02/01/19 19:49 - Medications Medications: Current Medications Donepezil HCl (Aricept) 10 mg PO HS [facility] Last Admin: 02/03/19 22:22 Dose: 10 mg Ipratropium [place] (Atrovent) 0.5 mg IH [id number] PRN PRN Reason: Shortness of Breath Linezolid (Zyvox) 600 mg PO BID [facility]; Protocol Stop: 02/11/19 10:31 Last Admin: 02/04/19 17:19 Dose: 600 mg Memantine (Namenda) 10 mg PO HS [facility] Last Admin: 02/03/19 22:22 Dose: 10 mg Multivitamins (Thera Tab) 1 tab PO DAILY [facility] Last Admin: 02/04/19 10:49 Dose: 1 tab Risperidone (Risperdal Tab) 0.25 mg PO BID [facility]; Protocol Last Admin: 02/04/19 17:18 Dose: 0.25 mg Warfarin Sodium (Coumadin) 4 mg PO 1800 [facility]; Protocol Last Admin: 02/04/19 17:18 Dose: 4 mg Ziprasidone (Geodon Inj) 5 mg IM Q6 PRN; Protocol PRN Reason: Agitation Physical Exam - Constitutional Appears: Non-toxic, No Acute Distress, Chronically Ill - Head Exam Head Exam: ATRAUMATIC, NORMOCEPHALIC - Eye Exam Eye Exam: EOMI, PERRL Pupil Exam: NORMAL ACCOMODATION, PERRL - ENT Exam ENT Exam: Mucous Membranes Moist, Normal External Ear Exam, TM's Normal Bilaterally - Neck Exam Neck exam: Positive for: Full Rom, Normal Inspection - Respiratory Exam Respiratory Exam: Clear to Auscultation Bilateral, NORMAL BREATHING PATTERN. absent: Rales, Rhonchi, Wheezes - Cardiovascular Exam Cardiovascular Exam: Irregular Rhythm, +S1, +S2 - GI/Abdominal Exam GI & Abdominal Exam: Normal Bowel Sounds, Soft. absent: Distended, Tenderness - Extremities Exam Extremities exam: Positive for: full ROM, normal inspection, pedal pulses present. Negative for: joint swelling, pedal edema - Neurological Exam Neurological exam: Alert, CN II-XII Intact Additional comments: AAO x 2 - Psychiatric Exam Psychiatric exam: Agitated, Anxious - Skin Skin Exam: Intact, Normal Color Results - Vital Signs Recent Vital Signs: Last Vital Signs Temp 97.7 F 02/04/19 06:00 Pulse 53 L 02/04/19 06:00 Resp 19 02/04/19 06:00 BP 125/75 02/04/19 06:00 Pulse Ox 93 L 02/04/19 06:00 - Labs Result Diagrams: 02/04/19 07:30 02/04/19 07:30 Labs: Laboratory Results - last 24 hr 02/04/19 02/04/19 02/04/19 07:30 07:30 07:30 WBC 5.5 RBC 4.23 Hgb 12.5 L Hct 39.3 L MCV 92.9 MCH 29.6 MCHC 31.8 RDW 14.2 Plt Count 151 MPV 10.3 Neut % (Auto) 76.4 H Lymph % (Auto) 11.4 L [place] % (Auto) 7.8 H Eos % (Auto) 4.0 Baso % (Auto) 0.4 Lymph # (Auto) 0.6 L [place] # (Auto) 0.4 Eos # (Auto) 0.2 Baso # (Auto) 0.02 Absolute Neuts (auto) 4.23 PT 17.3 H INR 1.53 Sodium 145 Potassium 4.1 Chloride 114 H Carbon Dioxide 28 Anion Gap 7 L BUN 25 H Creatinine 1.0 Est GFR ( Amer) > 60 Est GFR (Non-Af Amer) > 60 Random Glucose 87 Calcium 8.8 Total Bilirubin 0.6 AST 24 ALT 7 Alkaline Phosphatase 72 Total Protein 6.2 Albumin 3.3 Globulin 2.9 Albumin/Globulin Ratio 1.1 Assessment & Plan - Assessment and Plan (Free Text) Assessment: 88 yo Citizen [place] male with Enterococcus growth in the urine cultures. The patient with multiple medical issues that include anxiety, depression, combative behavior, delirium, A. Fib, Prostate CA, CAD, HTN, DM, and arthritis. The patient has removed his IV on multiple occasions. Will give Zyvox for antibiotic treatment at this time as it can be given orally and will cover enterococcal growth. Supportive care. Thank you for allowing me to participate in the care of the patient, we will follow with you.
[2019-02-05 07:02] LABS: BASO # 0.04 {null, K/mm3} (0.0-2.0); BASO % 0.7 % (0.0-3.0); EOS # 0.3 (0.0-0.7); HEMOGLOBIN 12.8 g/dL (14.0-18.0); LYMPH # 0.8 (1.2-3.4); LYMPH % 14.6 % (22.0-35.0); MEAN CELL VOLUME 93.5 fl (80.0-105.0); MEAN CORPUSCULAR HEMOGLOBIN 29.9 pg (25.0-35.0); MEAN PLATELET VOLUME 9.9 fl (7.0-11.0); MONO # 0.4 (0.1-0.6); MONO % 7.3 % (1.0-6.0); RBC 4.28 {null, 10^6/uL} (3.5-6.1); RED CELL DISTRIBUTION WIDTH 14.3 % (11.5-14.5); WHITE BLOOD COUNT 5.4 {null, 10^3/uL} (4.5-11.0)
[2019-02-05 07:03] LABS: INR 1.5
[2019-02-05 08:46] LABS: ALB/GLOB RATIO 1.2 (1.1-1.8); ALBUMIN 3.5 g/dL (3.0-4.8); ALT/SGPT 15 U/L (7-56); AST/SGOT 27 U/L (17-59); BLOOD UREA NITROGEN 23 mg/dL (7-21); CALCIUM 9.2 mg/dL (8.4-10.5); GFR NON-AFRICAN AMERICAN > 60
[2019-02-05] MEDS: Multivitamin Therapeutic Tab PO SCH (10:40)
[2019-02-05 13:54] VITALS: BP 171/89; PULSE 101; RESP 18; TEMP 98.1; O2SAT 94
--- NOTE | 2019-02-05 17:21 | CP.PCM.PN ---
Subjective - Date & Time of Evaluation Date of Evaluation: 02/05/19 Time of Evaluation: 14:00 - Subjective Subjective: Infectious Disease Follow Up: February 05, 2019 88 yo Martiniquais speaking male with multiple medical issues that include depression, anxiety, delirium, combative behavior, A. Fib, Prostate CA, CAD, HTN, DM, and arthritis. History PCN allergy. The patient found with Enterococcus Faecium in urine. Case discussed with Nurse Practitioner. Zyvox started for treatment initially. Difficult IV access as the patient can have combative behavior and often removes his IV. Noted that the patient was on Cipro for antibiotic treatment earlier in this hospitalization. Continue with Zyvox PO for antibiotic treatment of Enterococcus given ampicillin resistance. Objective - Vital Signs/Intake and Output Vital Signs (last 24 hours): Temp Pulse Resp BP Pulse Ox 98.1 F 101 H 18 171/89 H 94 L 02/05/19 13:40 02/05/19 13:40 02/05/19 13:40 02/05/19 13:40 02/05/19 13:40 Intake and Output: 02/05/19 02/05/19 06:59 18:59 Intake Total 620 260 Output Total 300 1 Balance 320 259 - Labs Labs: 02/05/19 06:30 02/05/19 06:30 PT 17.0 SECONDS (9.4-12.5) H 02/05/19 06:30 INR 1.50 02/05/19 06:30 APTT 33.9 Seconds (26.9-38.3) 02/01/19 14:00 - Constitutional Appears: Non-toxic, No Acute Distress, Chronically Ill - Head Exam Head Exam: ATRAUMATIC, NORMOCEPHALIC - Eye Exam Eye Exam: EOMI, PERRL Pupil Exam: NORMAL ACCOMODATION, PERRL - ENT Exam ENT Exam: Mucous Membranes Moist, Normal External Ear Exam, TM's Normal Bilaterally - Neck Exam Neck Exam: Full ROM, Normal Inspection - Respiratory Exam Respiratory Exam: Clear to Ausculation Bilateral, NORMAL BREATHING PATTERN. absent: Rales, Rhonchi, Wheezes - Cardiovascular Exam Cardiovascular Exam: REGULAR RHYTHM, RRR, +S1, +S2 - GI/Abdominal Exam GI & Abdominal Exam: Soft, Normal Bowel Sounds. absent: Distended, Tenderness - Extremities Exam Extremities Exam: Full ROM, Normal Inspection - Neurological Exam Neurological Exam: Alert, Awake, CN II-XII Intact Additional comments: AAO x 1-2 - Psychiatric Exam Psychiatric exam: Normal Affect, Normal Mood - Skin Skin Exam: Intact, Normal Color Assessment and Plan - Assessment and Plan (Free Text) Assessment: 88 yo [place] male with Enterococcus growth in the urine cultures. The patient with multiple medical issues that include anxiety, depression, combative beh avior, delirium, A. Fib, Prostate CA, CAD, HTN, DM, and arthritis. The patient has removed his IV on multiple occasions. Will continue Zyvox for antibiotic treatment at this time as it can be given orally and will cover Enterococcus growth. 10 day course of treatment. Supportive care. Thank you for allowing me to participate in the care of the patient, we will follow with you.
== END 2019-02-05 16:58 | disposition home health service (06) | DRG 57 ==
LOC: ED 11:55 → ERH 14:24 → 5RNO 16:47
PROVIDERS: ADMIT Internal Medicine; ATTEND Internal Medicine Nephrology
DX: G30.9 Alzheimer's disease, unspecified (principal); F02.81 Dementia in other diseases classified elsewhere, unspecified severity, with behavioral disturbance; N39.0 Urinary tract infection, site not specified; N17.9 Acute kidney failure, unspecified; I50.22 Chronic systolic (congestive) heart failure; F05 Delirium due to known physiological condition; I11.0 Hypertensive heart disease with heart failure; E86.0 Dehydration; I48.91 Unspecified atrial fibrillation; F32.9 Major depressive disorder, single episode, unspecified; R26.81 Unsteadiness on feet; I25.10 Atherosclerotic heart disease of native coronary artery without angina pectoris; M19.90 Unspecified osteoarthritis, unspecified site; E11.9 Type 2 diabetes mellitus without complications; F41.9 Anxiety disorder, unspecified; J44.9 Chronic obstructive pulmonary disease, unspecified; B95.2 Enterococcus as the cause of diseases classified elsewhere; Z16.11 Resistance to penicillins; Z85.46 Personal history of malignant neoplasm of prostate; Z95.5 Presence of coronary angioplasty implant and graft; Z79.01 Long term (current) use of anticoagulants; Z72.0 Tobacco use; Z86.73 Personal history of transient ischemic attack (TIA), and cerebral infarction without residual deficits; Z88.0 Allergy status to penicillin